=== PATIENT | female | born 1970 | race Caucasian/White ===

== ENCOUNTER → 2020-07-15 12:54 | Outpatient (CLI) | payer OTHER, SELFPAY ==
--- NOTE | 2020-07-15 12:59 | DI.US.S_ITS ---
PROCEDURE: US RENAL COMPLETE INDICATIONS: R FLANK PAIN TECHNIQUE: Real-time scanning was performed of the kidneys and bladder, with image documentation. COMPARISON: None. FINDINGS: Kidneys: Kidneys are normal in size. Right kidney measures 13.0 cm long; left kidney measures 12.1 cm long. Right renal cortical thickness is 1.1 cm; left renal cortical thickness is 1.2 cm with area of more focal thinning measuring 0.7 cm. Renal cortical echotexture is normal. No hydronephrosis or nephrolithiasis. No suspicious solid mass lesions. Bladder: Pre-void bladder volume is 207 mL. Post-void residual is 57 mL. Pre-void images demonstrate no intraluminal masses or stones. On pre-void images, bilateral ureteral jets are noted with color Doppler interrogation. (Of note, ureteral jets may not be detectable in up to 25% of cases due to insufficient differences in specific gravity between ureteral and bladder urine). There is suggestion of possible prominent trabeculation of the urinary bladder. Miscellaneous: No free pelvic fluid. IMPRESSION: 1. No sonographic evidence for hydronephrosis. 2. Possible focal cortical thinning of the left kidney, but otherwise unremarkable sonographic appearance of the left kidney. 3. Normal sonographic appearance of the right kidney. 4. Postvoid residual volume of 57 mL. 5. Suggestion of minimal prominence of urinary bladder trabeculation. This is nonspecific but may be seen in the setting of chronic urinary outlet obstruction. Dictated by: Andrew Lamb M.D. on 07/15/2020 at 14:20 Approved by: Andrew Lamb M.D. on 07/15/2020 at 14:39
== END ==
PROVIDERS: PCP Family Medicine; Referring Provider Physician Assistant; Visit Provider Physician Assistant
DX: R10.9 Unspecified abdominal pain (principal)
CPT/HCPCS: 76770

== ENCOUNTER → 2020-07-24 15:13 | Outpatient (CLI) | payer OTHER, SELFPAY ==
[2020-07-24 15:37] LABS: Hematocrit 38.3 % (36-46); Hemoglobin 13.1 g/dL (12.0-16.0); Mean Corpuscular HGB Conc 34.3 % (30-36); Mean Corpuscular Hemoglobin 30.4 PG (26-34); Mean Corpuscular Volume 88.7 fL (80-100); Platelet Count 200 X10^3/uL (150-400); Red Blood Cell Count 4.31 X10^6/uL (4.0-5.2); Red Cell Distribution Width 13.8 % (11.6-14.8); White Blood Cell Count 5.5 X10^3/uL (4.5-11.0)
[2020-07-24 15:38] LABS: Add Manual Diff / Slide Review YES
[2020-07-24 15:48] LABS: Albumin 4.1 g/dL (3.5-5.0); Albumin Globulin Ratio 1.2 (1.0-2.8); Alkaline Phosphatase 145 U/L (38-126); BUN Creatinine Ratio 13.2 (6-22); Bilirubin Total 1.6 mg/dL (0.2-1.3); Blood Urea Nitrogen 10 mg/dL (7-17); Calcium 9.5 mg/dL (8.4-10.2); Carbon Dioxide 29 mmol/L (22-32); Chloride 104 mmol/L (98-107); Estimated Glomerular Filt Rate > 60.0 mL/min (>60); Globulin 3.5 g/dL (1.7-4.1); Glucose 129 mg/dL (70-100); HEMOLYSIS < 15 (0-50); Potassium 3.7 mmol/L (3.4-5.1); Sodium 138 mmol/L (137-145); Total Protein 7.6 g/dL (6.3-8.2)
[2020-07-24 15:56] LABS: Neutrophils Absolute Manual 2035 /uL (3000-5900); Total Cells Counted 100
[2020-07-24 15:58] LABS: Aspartate Aminotransferase 1114 IU/L (14-36); RBC Morphology Normal Morphology
[2020-07-24 16:17] LABS: Alanine Aminotransferase 2708 IU/L (<35)
== END ==
PROVIDERS: PCP Family Medicine; Referring Provider Physician Assistant; Visit Provider Physician Assistant
DX: R10.9 Unspecified abdominal pain (principal)
CPT/HCPCS: 36415; 80053; 85025

== ENCOUNTER → 2020-08-06 13:00 | Outpatient (CLI) | payer OTHER, MEDICAID, SELFPAY ==
[2020-08-09 23:36] LABS: TPMT Activity 27.7 (.)
== END ==
PROVIDERS: PCP Family Medicine; Referring Provider Internal Medicine Gastroenterology; Visit Provider Internal Medicine Gastroenterology
DX: K75.4 Autoimmune hepatitis (principal)
CPT/HCPCS: 36415; 82657

== ENCOUNTER → 2021-01-12 12:22 | Outpatient (CLI) | payer OTHER, SELFPAY ==
--- NOTE | 2021-01-12 12:23 | DI.RAD.S_ITS ---
PROCEDURE: XR FOOT RT MIN 3V INDICATIONS: R ring toe injury TECHNIQUE: 3 views of the foot were acquired. COMPARISON: None. FINDINGS: Bones: No fractures or dislocations. No suspicious bony lesions. Large plantar calcaneal bone spur. Soft tissues: No tibiotalar joint effusion. Achilles tendon appears normal. IMPRESSION: No fracture. No osseous lesion. If symptoms and/or clinical suspicion for pathology persists, further assessment with repeat radiographs (7-10 days) or advanced imaging (e.g. CT, MRI or bone scan) should be considered. Dictated by: Shelly Jacome MD, PhD on 01/12/2021 at 17:21 Approved by: Shelly Jacome MD, PhD on 01/12/2021 at 17:22
== END ==
PROVIDERS: PCP Family Medicine; Referring Provider Family Medicine; Visit Provider Family Medicine
DX: S99.921A Unspecified injury of right foot, initial encounter (principal); X58.XXXA Exposure to other specified factors, initial encounter
CPT/HCPCS: 73630

== ENCOUNTER → 2021-02-24 09:42 | Outpatient (CLI) | payer OTHER, SELFPAY ==
[2021-02-24 10:32] LABS: Add Manual Diff / Slide Review NO; Basophils Absolute Auto 100 /uL (0-100); Basophils Percent Auto 0.7 % (0-2); Eosinophils Absolute Auto 100 /uL (0-450); Eosinophils Percent Auto 1.1 % (2-4); Hematocrit 38.9 % (36-46); Hemoglobin 13.7 g/dL (12.0-16.0); Lymphocytes Absolute Auto 2000 /uL (1100-4500); Lymphocytes Percent Auto 24.8 % (25-40); Mean Corpuscular HGB Conc 35.1 % (30-36); Mean Corpuscular Hemoglobin 33.6 PG (26-34); Mean Corpuscular Volume 95.6 fL (80-100); Monocytes Absolute Auto 500 /uL (0-900); Monocytes Percent Auto 6.3 % (3-14); Neutrophils Absolute Auto 5400 /uL (1500-7000); Neutrophils Percent Auto 67.1 % (50-75); Platelet Count 245 X10^3/uL (150-400); Red Blood Cell Count 4.07 X10^6/uL (4.0-5.2); Red Cell Distribution Width 13.8 % (11.6-14.8); White Blood Cell Count 8.1 X10^3/uL (4.5-11.0)
[2021-02-24 10:47] LABS: Alanine Aminotransferase 80 IU/L (<35); Albumin 4.1 g/dL (3.5-5.0); Albumin Globulin Ratio 1.5 (1.0-2.8); Alkaline Phosphatase 42 U/L (38-126); Aspartate Aminotransferase 40 IU/L (14-36); Bilirubin Total 1.3 mg/dL (0.2-1.3); Bilirubin Unconjugated 1.3 mg/dL (0.0-1.1); Globulin 2.7 g/dL (1.7-4.1); HEMOLYSIS < 15 (0-50); Total Protein 6.8 g/dL (6.3-8.2)
== END ==
PROVIDERS: PCP Family Medicine; Referring Provider Internal Medicine Gastroenterology; Visit Provider Internal Medicine Gastroenterology
DX: K75.4 Autoimmune hepatitis (principal)
CPT/HCPCS: 36415; 80076; 85025

== ENCOUNTER → 2021-03-16 09:12 | Outpatient (CLI) | payer OTHER, SELFPAY ==
[2021-03-16 10:01] LABS: Add Manual Diff / Slide Review NO; Basophils Absolute Auto 0 /uL (0-100); Basophils Percent Auto 0.4 % (0-2); Eosinophils Absolute Auto 0 /uL (0-450); Eosinophils Percent Auto 0.5 % (2-4); Hemoglobin 13.6 g/dL (12.0-16.0); Lymphocytes Absolute Auto 1000 /uL (1100-4500); Lymphocytes Percent Auto 11.6 % (25-40); Mean Corpuscular Hemoglobin 32.6 PG (26-34); Mean Corpuscular Volume 95.9 fL (80-100); Monocytes Absolute Auto 400 /uL (0-900); Monocytes Percent Auto 4.5 % (3-14); Neutrophils Absolute Auto 7300 /uL (1500-7000); Platelet Count 229 X10^3/uL (150-400); Red Blood Cell Count 4.17 X10^6/uL (4.0-5.2); Red Cell Distribution Width 13.6 % (11.6-14.8); White Blood Cell Count 8.8 X10^3/uL (4.5-11.0)
[2021-03-16 10:21] LABS: Alanine Aminotransferase 62 IU/L (<35); Albumin Globulin Ratio 1.6 (1.0-2.8); Alkaline Phosphatase 48 U/L (38-126); Aspartate Aminotransferase 39 IU/L (14-36); Bilirubin Unconjugated 1.1 mg/dL (0.0-1.1); Globulin 2.5 g/dL (1.7-4.1); HEMOLYSIS < 15 (0-50); Total Protein 6.5 g/dL (6.3-8.2)
== END ==
PROVIDERS: PCP Family Medicine; Referring Provider Internal Medicine Gastroenterology; Visit Provider Internal Medicine Gastroenterology
DX: K75.4 Autoimmune hepatitis (principal)
CPT/HCPCS: 36415; 80076; 85025

== ENCOUNTER 2021-03-25 11:36 | Emergency (ER) | payer OTHER, SELFPAY ==
[2021-03-25 11:53] VITALS: BP 133/82; PULSE 63; RESP 18; TEMP 36.7; O2SAT 98; BMI 35.5
[2021-03-25 12:11] LABS: Add Manual Diff / Slide Review NO; Basophils Absolute Auto 100 /uL (0-100); Basophils Percent Auto 0.6 % (0-2); Eosinophils Absolute Auto 100 /uL (0-450); Eosinophils Percent Auto 0.7 % (2-4); Hematocrit 40.4 % (36-46); Hemoglobin 13.8 g/dL (12.0-16.0); Lymphocytes Absolute Auto 900 /uL (1100-4500); Mean Corpuscular HGB Conc 34.2 % (30-36); Mean Corpuscular Hemoglobin 32.6 PG (26-34); Mean Corpuscular Volume 95.5 fL (80-100); Monocytes Absolute Auto 500 /uL (0-900); Monocytes Percent Auto 5.2 % (3-14); Neutrophils Absolute Auto 8000 /uL (1500-7000); Neutrophils Percent Auto 84.5 % (50-75); Platelet Count 237 X10^3/uL (150-400); Red Blood Cell Count 4.24 X10^6/uL (4.0-5.2); Red Cell Distribution Width 13.7 % (11.6-14.8); White Blood Cell Count 9.5 X10^3/uL (4.5-11.0)
[2021-03-25 12:20] LABS: PTT Partial Thromboplastin Tim 34 SECONDS (26.4-36.2)
[2021-03-25 12:21] LABS: Alanine Aminotransferase 53 IU/L (<35); Albumin 4.1 g/dL (3.5-5.0); Albumin Globulin Ratio 1.4 (1.0-2.8); Alkaline Phosphatase 56 U/L (38-126); Aspartate Aminotransferase 33 IU/L (14-36); BUN Creatinine Ratio 22.2 (6-22); Bilirubin Total 0.7 mg/dL (0.2-1.3); Blood Urea Nitrogen 18 mg/dL (7-17); Carbon Dioxide 27 mmol/L (22-32); Chloride 104 mmol/L (98-107); Estimated Glomerular Filt Rate > 60.0 mL/min (>60); Globulin 2.9 g/dL (1.7-4.1); Glucose 126 mg/dL (70-100); HEMOLYSIS < 15 (0-50); Lipase 127 U/L (23-300); Potassium 4.1 mmol/L (3.4-5.1); Sodium 137 mmol/L (137-145)
--- NOTE | 2021-03-25 14:19 | ED.GENADULT ---
HPI - General Adult General Chief complaint: Abdominal Pain Stated complaint: possible appendicitis, referred by [facility] Time Seen by Provider: 03/25/21 14:12 Source: patient Mode of arrival: Ambulatory Limitations: no limitations History of Present Illness HPI narrative: Patient is a 51-year-old female here for evaluation of lower abdominal discomfort. She states has been going on for the past several days but worsened over the past 24 hours. No nausea vomiting. No urinary symptoms. No change in bowel habits. Did start after she was eating. They have a times it has been worse than others but has had constant pain since this time. She has never had a colonoscopy before. She does have autoimmune hepatitis and is on prednisone for this. She was sent to the emergency department for further evaluation by her primary doctor's office. Related Data Home Medications Medication Instructions Recorded Confirmed azathioprine 100 mg tablet 100 mg PO DAILY 10/01/20 12/08/20 budesonide 3 mg 3 mg PO DAILY 03/25/21 capsule,delayed,extended release prednisone 5 mg tablet 7.5 mg PO DAILY tab 03/25/21 Previous Rx's Medication Instructions Recorded levothyroxine 100 mcg tablet See Rx Instructions PO DAILY #90 02/05/21 tab Allergies Allergy/AdvReac Type Severity Reaction Status Date / Time fluconazole [From Diflucan] Allergy Verified 12/08/20 09:45 ibuprofen Allergy Verified 12/08/20 09:45 Review of Systems Constitutional Constitutional: Denies fatigue, Denies fever(s) and Denies headache(s) Eyes Eyes: Denies change in vision ENT Ears, Nose, Mouth, and Throat: Denies headache(s) and Denies sore throat Cardiovascular Cardiovascular: Denies chest pain and Denies dyspnea Respiratory Respiratory: Denies dyspnea Gastrointestinal Gastrointestinal: Reports abdominal pain, Denies change in bowel habits, Denies nausea and Denies vomiting Genitourinary Genitourinary: Denies dysuria Genitourinary: Denies dysuria and Denies vaginal discharge Musculoskeletal Musculoskeletal: Denies arthralgias and Denies myalgias Integumentary/Breasts Skin/Breast: Denies rash Neurologic Neurologic: Denies behavioral changes and Denies headache(s) Psychiatric Psychiatric: Denies behavioral changes Endocrine Endocrine: Denies fatigue Hematologic/Lymphatic On Anticoagulants: No Allergic/Immunologic Allergic/Immunologic: Denies urticaria Patient History Medical History Anemia Autoimmune hepatitis (~2019) Drug-induced hepatitis (~09/2019) Hypothyroidism (~1996) Kidney disease Liver disease Pyelonephritis (~1970) Recurrent UTI Sliding hiatal hernia (~2010) Surgical History (Updated 10/02/20 @ 20:20 by Rizwana Bateman) Anesthesia History of hand surgery (~2016) History of partial hysterectomy (~2010) History of History of tubal ligation (~1996) Pilonidal cyst (~1990) S/P ureteral reimplantation Ulnar nerve damage (~2006) [place] teeth removed (~2006) Social History Smoking Status: Former smoker Smoking Status: Former smoker alcohol intake frequency: 0-2 drinks per day Substance Use Type: does not use Exam Initial Vital Signs Initial Vital Signs: Vital Signs Temperature 98.0 F 03/25/21 11:53 Pulse Rate 63 03/25/21 11:53 Respiratory Rate 18 03/25/21 11:53 Blood Pressure 133/82 03/25/21 11:53 Pulse Oximetry 98 03/25/21 11:53 Const General: cooperative, comfortable and well developed Limitations: mental status not altered HENMT Head: normal to inspection and normocephalic Eyes General: appearance normal, both eyes and all related structures Chest Chest: No tenderness Resp Effort & Inspection: normal respiratory effort Auscultation: clear to auscultation bilaterally Cardio Rate: regular rate Rhythm: regular rhythm GI Inspection: non-distended Palpation: soft, No firm and tender (Midline to lower abdomen without rebound or guarding) Skin Lesions: no lesions Rashes: no rashes Neuro General: patient alert, patient awake and patient oriented x3 Cognition: normal cognition Speech: speech normal Extrem General: normal to inspection and capillary refill normal Psych Appearance: grossly normal and well kempt Course Orders Ordered: ED Orders 03/25/21 12:05 Complete Blood Count AUTO DIFF Stat Comprehensive Metabolic Panel Stat Lipase Stat Partial Thromboplastin Time Stat Prothrombin Time INR Stat 03/25/21 14:20 CT abdomen pelvis w con Stat 03/25/21 14:48 Urine Microscopic Stat Discontinued Medications Sodium Chloride (Normal Saline 0.9%) 1,000 mls @ 1,000 mls/hr IV BOLUS ONE Stop: 03/25/21 15:19 Last Admin: 03/25/21 14:35 Dose: 1,000 mls/hr Documented by: MAURICIO Vital Signs Vital signs: Vital Signs - 8 hr 03/25/21 11:53 Temperature 98.0 F Pulse Rate 63 Respiratory Rate 18 Blood Pressure 133/82 Pulse Oximetry 98 Medical Decision Making Lab Data Lab results reviewed: Yes I reviewed the patient's lab results. Result diagrams: 03/25/21 12:05 03/25/21 12:05 Labs: Lab Results 03/25/21 03/25/21 03/25/21 Range/Units 12:05 12:05 12:05 WBC 9.5 (4.5-11.0) X10^3/uL RBC 4.24 (4.0-5.2) X10^6/uL Hgb 13.8 (12.0-16.0) g/dL Hct 40.4 (36-46) % MCV 95.5 (80-100) fL MCH 32.6 (26-34) PG MCHC 34.2 (30-36) % RDW 13.7 (11.6-14.8) % Plt Count 237 (150-400) X10^3/uL Neut % (Auto) 84.5 H (50-75) % Lymph % (Auto) 9.0 L (25-40) % [place] % (Auto) 5.2 (3-14) % Eos % (Auto) 0.7 L (2-4) % Baso % (Auto) 0.6 (0-2) % Neut # (Auto) 8000 H (1341-7452) /uL Lymph # (Auto) 900 L (7246-3962) /uL [place] # (Auto) 500 (0-900) /uL Eos # (Auto) 100 (0-450) /uL Baso # (Auto) 100 (0-100) /uL PT 11.0 (10.1-12.7) SECONDS INR 1.0 (0.9-1.3) APTT 34 (26.4-36.2) SECONDS Sodium 137 (137-145) mmol/L Potassium 4.1 (3.4-5.1) mmol/L Chloride 104 (98-107) mmol/L Carbon Dioxide 27 (22-32) mmol/L BUN 18 H (7-17) mg/dL Creatinine 0.81 (0.52-1.04) mg/dL Estimated GFR > 60.0 (>60) mL/min BUN/Creatinine Ratio 22.2 H (6-22) Glucose 126 H (70-100) mg/dL Calcium 10.0 (8.4-10.2) mg/dL Total Bilirubin 0.7 (0.2-1.3) mg/dL AST 33 (14-36) IU/L ALT 53 H (<35) IU/L Alkaline Phosphatase 56 (38-126) U/L Total Protein 7.0 (6.3-8.2) g/dL Albumin 4.1 (3.5-5.0) g/dL Globulin 2.9 (1.7-4.1) g/dL Albumin/Globulin Ratio 1.4 (1.0-2.8) Lipase 127 (23-300) U/L Urine Dip Bedside Urine Glucose Negative Bedside Urine Bilirubin - Negative Bedside Urine Ketone - Negative Urine Specific [place] 1.025 Bedside Urine Occult Blood +++ Bedside Urine pH 6.5 Bedside Urine Protein - Negative Bedside Urine Urobilinogen - Negative Bedside Urine Nitrite - Negative Bedside Urine Leukocytes - Negative Esterase Point of care testing: Urine Dip Bedside Urine Glucose Negative Bedside Urine Bilirubin - Negative Bedside Urine Ketone - Negative Urine Specific [place] 1.025 Bedside Urine Occult Blood +++ Bedside Urine pH 6.5 Bedside Urine Protein - Negative Bedside Urine Urobilinogen - Negative Bedside Urine Nitrite - Negative Bedside Urine Leukocytes - Negative Esterase Imaging Data CT scan - abdomen/pelvis: Radiologist's Impression: [address] [id number] Scan ReportSigned Patient: Ember Medellin#: [id number]: 1970Acct:[id number]/Sex: 51 / FDate of Service: 03/25/21Loc: EDAccession Number: [id number] Procedure: CT abdomen pelvis w con Ordering Provider: Graham Nelson D.O. PROCEDURE: CT ABDOMEN PELVIS W CON INDICATIONS: Suprapubic abdominal pain TECHNIQUE: After the administration of intravenous contrast, 5 mm thick sections acquired from the diaphragm to the symphysis. 5 mm coronal and sagittal reformats were acquired. For radiation dose reduction, the following was used: automated exposure control, adjustment of mA and/or kV according to patient size. COMPARISON: [facility], US, US ABDOMEN LIMITED, 08/12/2020, 7:13. FINDINGS: Image quality: Excellent. ABDOMEN: Lung bases: Lung bases are clear. Heart size is normal. Solid organs: Liver is normal in size and enhancement. Gallbladder is normal. Biliary system is non dilated. Pancreas enhances normally. Spleen is normal in size and enhancement. No adrenal nodules. Kidneys demonstrate normal size and enhancement, without hydronephrosis. 1.6 centimeter left renal cyst. Peritoneum and bowel: Bowel loops demonstrate normal wall thickness and caliber. No free air. Trace free fluid noted in the cul-de-sac of the pelvis. The appendix is normal. Nodes and vessels: No retroperitoneal or mesenteric adenopathy by size criteria. Aorta and inferior vena cava are normal in size. Miscellaneous: Small fat containing left Spigelian hernia noted. There is minimal stranding within the herniated fat. PELVIS: Genitourinary: Bladder wall thickness is normal. Uterus is absent. Miscellaneous: No inguinal hernias or adenopathy. Bones: No suspicious bony lesions. No vertebral body compression fractures. Spine degenerative disc disease. IMPRESSION: 1. Small fat containing left Spigelian hernia. There is minimal inflammatory stranding involving the herniated fat. 2. No dilated loops of bowel. 3. Trace free fluid in the cul-de-sac of the pelvis. 4. The appendix is normal. Dictated by: Shelly Jacome MD, PhD on 03/25/2021 at 14:46 Approved by: Shelly Jacome MD, PhD on 03/25/2021 at 14:55 [facility] Narrative Medical decision making narrative: Patient's labs are unremarkable. Her urine has blood but no signs of infection. Abdomen x-ray shows that containing hernia with some stranding but no bowel. Discussed the case with Dr. Valle with General surgery who stated that this should be treated with anti-inflammatories and she can follow-up as an outpatient. There is no other findings on the CT scan that would explain her symptoms. I did discuss this with her. There is no indication for antibiotics. No indication for emergent surgical consultation. She was given follow-up information with General surgery. She expressed understanding and agreement. Discharge Plan Departure Patient Disposition: Home Clinical Impression: Spigelian hernia, Abdominal pain, Hematuria Instructions: DI for Abdominal Pain-Adult Activity Restrictions/Additional Instructions: Recommend you continue all of your medications as directed. Contact your primary provider for follow-up. If your symptoms do not improve contact the general surgery clinic for a follow-up. Return to the emergency department for any new or worsening symptoms Prescriptions: No Action azathioprine 100 mg tablet 100 mg PO DAILY RF: 0 levothyroxine 100 mcg tablet See Rx Instructions PO DAILY Qty: 90 RF: 0 prednisone 5 mg tablet 7.5 mg PO DAILY RF: 0 budesonide 3 mg capsule,delayed,extend.release 3 mg PO DAILY RF: 0 Referrals: Rommel Valle MD [Physician] - Gogo Pedro MD [Primary Care Provider] -
[2021-03-25] MEDS: SODIUM CHLORIDE 0.9% 1,000 ML 1000 ML IV (14:35)
[2021-03-25 14:40] VITALS: PULSE 61; O2SAT 98
[2021-03-25 15:00] VITALS: BP 123/69; PULSE 64; O2SAT 100
[2021-03-25 15:14] LABS: Bacteria Urine None Seen
[2021-03-25 15:33] LABS: Amorphous Sediment Urine 2+; Culture Indicated Urine Cult Not Indicated; RBC Urine 10-30/HPF (0-5/HPF); Squamous Epithelial Cell Urine 0-1 /HPF (0-5/HPF); WBC Urine 0-1/HPF (0-5/HPF)
--- NOTE | 2021-04-14 11:37 | PC.NURSE ---
Late Entry - per RN IV fluids DC'd prior to discharge at 1445
--- NOTE | 2021-04-30 07:38 | PC.NURSE ---
Addendum entered by Valentina Meléndez R.N. 04/30/21 07:40: normal saline infused at 1445. Original Note: late entry. Normal Saline administered at 1435 at 1000 ml. hour and infused at 1535 . pt received 1000 cc. thank you
== END 2021-03-25 15:31 | disposition home or self-care (01) ==
PROVIDERS: Emergency Medicine; Emergency Provider Emergency Medicine; PCP Family Medicine
DX: K43.9 Ventral hernia without obstruction or gangrene (principal); R10.30 Lower abdominal pain, unspecified; R31.9 Hematuria, unspecified
CPT/HCPCS: 36415; 74177; 80053; 81003; 81015; 83690; 85025; 85610; 85730; 99284

== ENCOUNTER → 2021-03-31 12:54 | Outpatient (CLI) | payer OTHER, SELFPAY ==
[2021-03-31 13:15] LABS: Add Manual Diff / Slide Review NO; Basophils Absolute Auto 100 /uL (0-100); Basophils Percent Auto 0.9 % (0-2); Eosinophils Absolute Auto 0 /uL (0-450); Eosinophils Percent Auto 0.3 % (2-4); Hematocrit 42.2 % (36-46); Hemoglobin 14.4 g/dL (12.0-16.0); Lymphocytes Absolute Auto 1000 /uL (1100-4500); Lymphocytes Percent Auto 11.6 % (25-40); Mean Corpuscular HGB Conc 34.1 % (30-36); Mean Corpuscular Hemoglobin 32.5 PG (26-34); Mean Corpuscular Volume 95.5 fL (80-100); Monocytes Absolute Auto 400 /uL (0-900); Monocytes Percent Auto 4.7 % (3-14); Neutrophils Absolute Auto 6900 /uL (1500-7000); Neutrophils Percent Auto 82.5 % (50-75); Platelet Count 264 X10^3/uL (150-400); Red Blood Cell Count 4.42 X10^6/uL (4.0-5.2); Red Cell Distribution Width 13.7 % (11.6-14.8); White Blood Cell Count 8.3 X10^3/uL (4.5-11.0)
[2021-03-31 13:39] LABS: Alanine Aminotransferase 49 IU/L (<35); Albumin 4.1 g/dL (3.5-5.0); Albumin Globulin Ratio 1.5 (1.0-2.8); Alkaline Phosphatase 57 U/L (38-126); Aspartate Aminotransferase 34 IU/L (14-36); Bilirubin Total 1.1 mg/dL (0.2-1.3); Globulin 2.8 g/dL (1.7-4.1); HEMOLYSIS < 15 (0-50); Total Protein 6.9 g/dL (6.3-8.2)
== END ==
PROVIDERS: PCP Family Medicine; Referring Provider Internal Medicine Gastroenterology; Visit Provider Internal Medicine Gastroenterology
DX: K75.4 Autoimmune hepatitis (principal)
CPT/HCPCS: 36415; 80076; 85025

== ENCOUNTER → 2021-04-14 13:21 | Outpatient (CLI) | payer OTHER, SELFPAY ==
[2021-04-14 13:59] LABS: Add Manual Diff / Slide Review NO; Basophils Absolute Auto 100 /uL (0-100); Basophils Percent Auto 0.6 % (0-2); Eosinophils Absolute Auto 0 /uL (0-450); Eosinophils Percent Auto 0.3 % (2-4); Hemoglobin 14.1 g/dL (12.0-16.0); Lymphocytes Absolute Auto 1000 /uL (1100-4500); Mean Corpuscular HGB Conc 33.5 % (30-36); Mean Corpuscular Volume 95.3 fL (80-100); Monocytes Absolute Auto 300 /uL (0-900); Monocytes Percent Auto 3.6 % (3-14); Neutrophils Absolute Auto 8200 /uL (1500-7000); Neutrophils Percent Auto 85.5 % (50-75); Platelet Count 249 X10^3/uL (150-400); Red Blood Cell Count 4.41 X10^6/uL (4.0-5.2); Red Cell Distribution Width 13.7 % (11.6-14.8); White Blood Cell Count 9.6 X10^3/uL (4.5-11.0)
[2021-04-14 15:22] LABS: Alanine Aminotransferase 46 IU/L (<35); Albumin 4.2 g/dL (3.5-5.0); Albumin Globulin Ratio 1.4 (1.0-2.8); Alkaline Phosphatase 56 U/L (38-126); Aspartate Aminotransferase 41 IU/L (14-36); Bilirubin Total 0.9 mg/dL (0.2-1.3); Globulin 3.1 g/dL (1.7-4.1); HEMOLYSIS < 15 (0-50); Total Protein 7.3 g/dL (6.3-8.2)
== END ==
PROVIDERS: PCP Family Medicine; Referring Provider Internal Medicine Gastroenterology; Visit Provider Internal Medicine Gastroenterology
DX: K75.4 Autoimmune hepatitis (principal)
CPT/HCPCS: 36415; 80076; 85025

== ENCOUNTER 2021-05-01 23:06 | Emergency (ER) | payer OTHER, SELFPAY ==
--- NOTE | 2021-05-01 23:16 | ED_ITS ---
HPI - General Adult General Chief complaint: Urogenital-Female Stated complaint: UTI Time Seen by Provider: 05/01/21 23:16 History of Present Illness HPI narrative: 51-year-old woman with a history of autoimmune hepatitis currently on prednisone budesonide and azathioprine presents with 24 hours of increasing urinary tract symptoms. She noted increasing frequency yesterday in today was beginning to notice slight sensation of burning and continued frequency. She has had multiple UTIs in the past and wanted to make sure that with the moderate amount of immunosuppressive medications she is on that she did not end up with complications from a simple bladder infection. She describes no fevers, cough, chills, abdominal pain, vomiting, diarrhea, flank pain, headache or acute neurologic changes Related Data Home Medications Medication Instructions Recorded Confirmed azathioprine 100 mg tablet 100 mg PO DAILY 10/01/20 12/08/20 budesonide 3 mg 3 mg PO DAILY 03/25/21 capsule,delayed,extended release prednisone 5 mg tablet 7.5 mg PO DAILY tab 03/25/21 Previous Rx's Medication Instructions Recorded levothyroxine 100 mcg tablet See Rx Instructions PO DAILY #90 02/05/21 tab sulfamethoxazole-trimethoprim 1 tab PO BID #10 tab 05/01/21 [Bactrim DS] Allergies Allergy/AdvReac Type Severity Reaction Status Date / Time fluconazole [From Diflucan] Allergy Verified 12/08/20 09:45 ibuprofen Allergy Verified 12/08/20 09:45 Review of Systems Review of Systems Narrative: Remainder of complete review of systems is otherwise unremarkable except for that included in the HPI. Patient History Medical History Anemia Autoimmune hepatitis (~2019) Drug-induced hepatitis (~09/2019) Hypothyroidism (~1996) Kidney disease Liver disease Pyelonephritis (~1970) Recurrent UTI Sliding hiatal hernia (~2010) Surgical History Anesthesia History of hand surgery (~2016) History of partial hysterectomy (~2010) History of History of tubal ligation (~1996) Pilonidal cyst (~1990) S/P ureteral reimplantation Ulnar nerve damage (~2006) [place] teeth removed (~2006) Social History Smoking Status: Former smoker Smoking Status: Former smoker alcohol intake frequency: 0-2 drinks per day Substance Use Type: does not use Exam Narrative Exam Narrative: General: Alert appropriate in no acute distress Respiratory: Able to speak in full sentences, no obvious respiratory distress Abdomen: No abdominal pain, no suprapubic and no flank pain Skin: No obvious rashes, warm and dry Neurologic: Grossly intact no obvious asymmetries or abnormalities Psych: appropriate insight and affect, cooperative Initial Vital Signs Initial Vital Signs: Vital Signs Temperature 97.6 F 05/01/21 23:18 Pulse Rate 64 05/01/21 23:18 Respiratory Rate 14 05/01/21 23:18 Blood Pressure 140/96 H 05/01/21 23:18 Pulse Oximetry 97 05/01/21 23:18 Course Orders Ordered: ED Orders 05/01/21 23:28 Urine Culture Stat Urine Microscopic Stat Discontinued Medications Trimethoprim/Sulfamethoxazole (Trimeth/Sulfa 160/800 (Ds) Tablet) 1 tab PO NOW ONE Stop: 05/01/21 23:55 Last Admin: 05/01/21 23:59 Dose: 1 tab Documented by: ALEKSANDER Vital Signs Vital signs: Vital Signs - 8 hr 05/01/21 23:18 Temperature 97.6 F Pulse Rate 64 Respiratory Rate 14 Blood Pressure 140/96 H Pulse Oximetry 97 Medical Decision Making Medical Records Medical records reviewed: Yes I reviewed the patient's medical records. Lab Data Lab results reviewed: Yes I reviewed the patient's lab results. Labs: Lab Results 05/01/21 Range/Units 23:28 Urine RBC 10-30/hpf H (0-5/HPF) Urine WBC 1-5/hpf (0-5/HPF) Urine Bacteria Many (>30) H (None) Ur Culture Indicated? Specimen cultured Urine Dip Bedside Urine Glucose Negative Bedside Urine Bilirubin - Negative Bedside Urine Ketone - Negative Urine Specific [place] 1.015 Bedside Urine Occult Blood +++ Bedside Urine pH 7.5 Bedside Urine Protein - Negative Bedside Urine Urobilinogen - Negative Bedside Urine Nitrite + Positive Bedside Urine Leukocytes + 70 Esterase Point of care testing: Urine Dip Bedside Urine Glucose Negative Bedside Urine Bilirubin - Negative Bedside Urine Ketone - Negative Urine Specific [place] 1.015 Bedside Urine Occult Blood +++ Bedside Urine pH 7.5 Bedside Urine Protein - Negative Bedside Urine Urobilinogen - Negative Bedside Urine Nitrite + Positive Bedside Urine Leukocytes + 70 Esterase MDM Narrative Medical decision making narrative: 51-year-old woman with clinical signs and symptoms of UTI with positive urinalysis. She says she has had success with both Septra and Cipro in the past. Given a prescription for Septra b.i.d. for the next 5 days. There is no evidence of sepsis, vaginal infection, pyelonephri tis or intra-abdominal infection. She is safe for home discharge Discharge Plan Departure Patient Disposition: Home Clinical Impression: Recurrent UTI Instructions: DI for Urinary Tract Infection (UTI) Activity Restrictions/Additional Instructions: Thank you for coming in today It definitely looks like you have a bladder infection developing. Your urine has been cultured. In the meantime, we have started you on Septra/Bactrim. First dose was given in the ER and I have given you 10 additional pills to complete a 5 day course If you have worsening symptoms, vomiting, flank pain, fevers or abdominal pain please feel free to return to the emergency department for further evaluation. I am glad that you came in as early as you did, I think that was very appropriate. Prescriptions: New sulfamethoxazole-trimethoprim [Bactrim DS] 800-160 mg tablet 1 tab PO BID Qty: 10 RF: 0 No Action azathioprine 100 mg tablet 100 mg PO DAILY RF: 0 levothyroxine 100 mcg tablet See Rx Instructions PO DAILY Qty: 90 RF: 0 prednisone 5 mg tablet 7.5 mg PO DAILY RF: 0 budesonide 3 mg capsule,delayed,extend.release 3 mg PO DAILY RF: 0 Referrals: Gogo Pedro MD [Primary Care Provider] -
[2021-05-01 23:18] VITALS: BP 140/96; PULSE 64; RESP 14; TEMP 36.4; O2SAT 97; BMI 35.5
[2021-05-01 23:48] LABS: Bacteria Urine Many (>30); RBC Urine 10-30/HPF (0-5/HPF); WBC Urine 1-5/HPF (0-5/HPF)
[2021-05-01 23:49] LABS: Culture Indicated Urine Specimen Cultured
[2021-05-01] MEDS: TRIMETH/SULFA 160/800 (DS) TABLET 1 TAB PO (23:59)
== END 2021-05-02 00:04 | disposition home or self-care (01) ==
PROVIDERS: Emergency Provider Emergency Medicine; PCP Family Medicine
DX: N39.0 Urinary tract infection, site not specified (principal)
CPT/HCPCS: 81003; 81015; 87077; 87086; 87186; 99283

== ENCOUNTER → 2021-05-05 11:30 | Outpatient (CLI) | payer OTHER, SELFPAY ==
[2021-05-05 12:07] LABS: Add Manual Diff / Slide Review NO; Basophils Absolute Auto 0 /uL (0-100); Basophils Percent Auto 0.4 % (0-2); Eosinophils Absolute Auto 0 /uL (0-450); Eosinophils Percent Auto 0.5 % (2-4); Hematocrit 39.7 % (36-46); Hemoglobin 13.5 g/dL (12.0-16.0); Lymphocytes Absolute Auto 900 /uL (1100-4500); Lymphocytes Percent Auto 12.6 % (25-40); Mean Corpuscular HGB Conc 33.9 % (30-36); Mean Corpuscular Hemoglobin 31.9 PG (26-34); Mean Corpuscular Volume 94.1 fL (80-100); Monocytes Absolute Auto 400 /uL (0-900); Monocytes Percent Auto 5.6 % (3-14); Neutrophils Absolute Auto 5800 /uL (1500-7000); Neutrophils Percent Auto 80.9 % (50-75); Platelet Count 255 X10^3/uL (150-400); Red Blood Cell Count 4.22 X10^6/uL (4.0-5.2); Red Cell Distribution Width 13.7 % (11.6-14.8); White Blood Cell Count 7.2 X10^3/uL (4.5-11.0)
[2021-05-05 12:18] LABS: Alanine Aminotransferase 36 IU/L (<35); Albumin 4.1 g/dL (3.5-5.0); Albumin Globulin Ratio 1.4 (1.0-2.8); Alkaline Phosphatase 61 U/L (38-126); Aspartate Aminotransferase 31 IU/L (14-36); Bilirubin Total 0.9 mg/dL (0.2-1.3); Bilirubin Unconjugated 0.7 mg/dL (0.0-1.1); HEMOLYSIS < 15 (0-50); Total Protein 7.1 g/dL (6.3-8.2)
[2021-05-05 12:49] LABS: Thyroid Stimulating Hormone 0.293 uIU/mL (0.47-4.68)
== END ==
PROVIDERS: PCP Family Medicine; Referring Provider Internal Medicine Gastroenterology; Visit Provider Internal Medicine Gastroenterology
DX: K75.4 Autoimmune hepatitis (principal); E03.9 Hypothyroidism, unspecified
CPT/HCPCS: 36415; 80076; 84443; 85025

== ENCOUNTER → 2021-06-03 15:41 | Outpatient (CLI) | payer OTHER, SELFPAY ==
[2021-06-03 17:39] LABS: Add Manual Diff / Slide Review NO; Basophils Absolute Auto 0 /uL (0-100); Basophils Percent Auto 0.4 % (0-2); Eosinophils Absolute Auto 0 /uL (0-450); Eosinophils Percent Auto 0.3 % (2-4); Hematocrit 39.9 % (36-46); Hemoglobin 13.7 g/dL (12.0-16.0); Lymphocytes Absolute Auto 1000 /uL (1100-4500); Lymphocytes Percent Auto 12.8 % (25-40); Mean Corpuscular HGB Conc 34.3 % (30-36); Mean Corpuscular Hemoglobin 32.5 PG (26-34); Mean Corpuscular Volume 94.8 fL (80-100); Monocytes Absolute Auto 400 /uL (0-900); Monocytes Percent Auto 5.3 % (3-14); Neutrophils Absolute Auto 6500 /uL (1500-7000); Neutrophils Percent Auto 81.2 % (50-75); Platelet Count 262 X10^3/uL (150-400); Red Blood Cell Count 4.21 X10^6/uL (4.0-5.2); Red Cell Distribution Width 13.6 % (11.6-14.8)
[2021-06-03 18:28] LABS: Alanine Aminotransferase 45 IU/L (<35); Albumin 4.2 g/dL (3.5-5.0); Albumin Globulin Ratio 1.4 (1.0-2.8); Alkaline Phosphatase 59 U/L (38-126); Aspartate Aminotransferase 39 IU/L (14-36); Bilirubin Total 1.2 mg/dL (0.2-1.3); Bilirubin Unconjugated 1.1 mg/dL (0.0-1.1); HEMOLYSIS < 15 (0-50); Total Protein 7.2 g/dL (6.3-8.2)
[2021-06-03 18:55] LABS: Thyroid Stimulating Hormone 0.634 uIU/mL (0.47-4.68)
== END ==
PROVIDERS: PCP Family Medicine; Referring Provider Internal Medicine Gastroenterology; Visit Provider Internal Medicine Gastroenterology
DX: K75.4 Autoimmune hepatitis (principal); E03.9 Hypothyroidism, unspecified
CPT/HCPCS: 36415; 80076; 84443; 85025

== ENCOUNTER → 2021-06-09 11:54 | Outpatient (CLI) | payer OTHER, SELFPAY | PROVIDERS: PCP Family Medicine; Referring Provider Family Medicine; Visit Provider Family Medicine | DX: M85.88 Other specified disorders of bone density and structure, other site (principal); E07.9 Disorder of thyroid, unspecified; Z79.52 Long term (current) use of systemic steroids; Z87.891 Personal history of nicotine dependence | CPT/HCPCS: 77080 ==

== ENCOUNTER → 2021-06-22 09:29 | Outpatient (CLI) | payer OTHER, SELFPAY ==
[2021-06-22 10:07] LABS: Add Manual Diff / Slide Review NO; Basophils Absolute Auto 0 /uL (0-100); Basophils Percent Auto 0.6 % (0-2); Eosinophils Absolute Auto 100 /uL (0-450); Eosinophils Percent Auto 1.5 % (2-4); Hematocrit 39.2 % (36-46); Hemoglobin 13.1 g/dL (12.0-16.0); Lymphocytes Absolute Auto 1600 /uL (1100-4500); Lymphocytes Percent Auto 19.3 % (25-40); Mean Corpuscular HGB Conc 33.5 % (30-36); Mean Corpuscular Hemoglobin 31.6 PG (26-34); Mean Corpuscular Volume 94.5 fL (80-100); Monocytes Absolute Auto 500 /uL (0-900); Monocytes Percent Auto 6.3 % (3-14); Neutrophils Absolute Auto 5900 /uL (1500-7000); Neutrophils Percent Auto 72.3 % (50-75); Platelet Count 241 X10^3/uL (150-400); Red Blood Cell Count 4.15 X10^6/uL (4.0-5.2); Red Cell Distribution Width 13.5 % (11.6-14.8); White Blood Cell Count 8.1 X10^3/uL (4.5-11.0)
[2021-06-22 10:31] LABS: Alanine Aminotransferase 33 IU/L (<35); Albumin 3.7 g/dL (3.5-5.0); Albumin Globulin Ratio 1.4 (1.0-2.8); Alkaline Phosphatase 60 U/L (38-126); Aspartate Aminotransferase 29 IU/L (14-36); Bilirubin Total 0.9 mg/dL (0.2-1.3); Bilirubin Unconjugated 0.8 mg/dL (0.0-1.1); Globulin 2.6 g/dL (1.7-4.1); HEMOLYSIS < 15 (0-50); Total Protein 6.3 g/dL (6.3-8.2)
== END ==
PROVIDERS: PCP Family Medicine; Referring Provider Internal Medicine Gastroenterology; Visit Provider Internal Medicine Gastroenterology
DX: K75.4 Autoimmune hepatitis (principal)
CPT/HCPCS: 36415; 80076; 85025

== ENCOUNTER → 2021-07-09 11:21 | Outpatient (CLI) | payer OTHER, SELFPAY ==
[2021-07-09 12:02] LABS: Add Manual Diff / Slide Review NO; Basophils Absolute Auto 100 /uL (0-100); Basophils Percent Auto 1.3 % (0-2); Eosinophils Absolute Auto 100 /uL (0-450); Eosinophils Percent Auto 1.6 % (2-4); Hematocrit 38.3 % (36-46); Hemoglobin 12.7 g/dL (12.0-16.0); Lymphocytes Absolute Auto 1600 /uL (1100-4500); Lymphocytes Percent Auto 23.2 % (25-40); Mean Corpuscular HGB Conc 33.2 % (30-36); Mean Corpuscular Hemoglobin 31.2 PG (26-34); Monocytes Absolute Auto 500 /uL (0-900); Monocytes Percent Auto 7.9 % (3-14); Neutrophils Absolute Auto 4400 /uL (1500-7000); Platelet Count 242 X10^3/uL (150-400); Red Blood Cell Count 4.07 X10^6/uL (4.0-5.2); Red Cell Distribution Width 13.5 % (11.6-14.8); White Blood Cell Count 6.7 X10^3/uL (4.5-11.0)
[2021-07-09 12:20] LABS: Alanine Aminotransferase 33 IU/L (<35); Albumin 3.8 g/dL (3.5-5.0); Albumin Globulin Ratio 1.2 (1.0-2.8); Alkaline Phosphatase 55 U/L (38-126); Aspartate Aminotransferase 36 IU/L (14-36); Bilirubin Unconjugated 0.9 mg/dL (0.0-1.1); Globulin 3.1 g/dL (1.7-4.1); HEMOLYSIS < 15 (0-50); Total Protein 6.9 g/dL (6.3-8.2)
== END ==
PROVIDERS: PCP Family Medicine; Referring Provider Internal Medicine Gastroenterology; Visit Provider Internal Medicine Gastroenterology
DX: K75.4 Autoimmune hepatitis (principal)
CPT/HCPCS: 36415; 80076; 85025

== ENCOUNTER → 2021-08-10 14:11 | Outpatient (CLI) | payer OTHER, SELFPAY ==
[2021-08-10 14:52] LABS: Add Manual Diff / Slide Review NO; Basophils Absolute Auto 100 /uL (0-100); Basophils Percent Auto 0.7 % (0-2); Eosinophils Absolute Auto 100 /uL (0-450); Eosinophils Percent Auto 1.1 % (2-4); Hematocrit 39.4 % (36-46); Lymphocytes Absolute Auto 1300 /uL (1100-4500); Lymphocytes Percent Auto 16.7 % (25-40); Mean Corpuscular HGB Conc 32.9 % (30-36); Mean Corpuscular Volume 94.2 fL (80-100); Monocytes Absolute Auto 600 /uL (0-900); Monocytes Percent Auto 7.5 % (3-14); Neutrophils Absolute Auto 5700 /uL (1500-7000); Platelet Count 267 X10^3/uL (150-400); Red Blood Cell Count 4.18 X10^6/uL (4.0-5.2); Red Cell Distribution Width 13.1 % (11.6-14.8); White Blood Cell Count 7.7 X10^3/uL (4.5-11.0)
[2021-08-10 14:56] LABS: Alanine Aminotransferase 30 IU/L (<35); Albumin 4.3 g/dL (3.5-5.0); Albumin Globulin Ratio 1.4 (1.0-2.8); Alkaline Phosphatase 60 U/L (38-126); Aspartate Aminotransferase 28 IU/L (14-36); Bilirubin Total 0.9 mg/dL (0.2-1.3); Bilirubin Unconjugated 0.7 mg/dL (0.0-1.1); HEMOLYSIS < 15 (0-50); Total Protein 7.3 g/dL (6.3-8.2)
== END ==
PROVIDERS: PCP Family Medicine; Referring Provider Internal Medicine Gastroenterology; Visit Provider Internal Medicine Gastroenterology
DX: K75.4 Autoimmune hepatitis (principal)
CPT/HCPCS: 36415; 80076; 85025

== ENCOUNTER → 2021-08-25 10:54 | Outpatient (CLI) | payer OTHER, SELFPAY ==
--- NOTE | 2021-08-25 11:02 | DIET.PN1 ---
Dietary Progress Note Assessment: 51y [address] attending [address] visit for help managing diet for multiple health conditions including recent weight gain associated c prednisone use. Has sliding hiatal hernia, recent steroid caused weight gain making GERD (tomato sauce, , has an autoimmune hepatitis (stage 1). Just got off prednisone, had weight gain and lots of hunger and cravings. Pt has osteopenia not able to take calcium supplements. Easily runs out of energy, looking for easy meal prep ideas. When on clean eating diet: scrambled eggs c oatmeal c raisins chicken and turkey burger with blueberries and spinach some nuts smoothies-beets, spinach, broccoli, banana, yogurt, beet juice, carrot juice is using Nutpods as creamer in coffee not big milk drinker, likes cheese, some yogurt intake previously was taking 100% cranberry juice in water doesn't mind eating same foods daily. Lives c (pt grocery shops, does meals, packs lunch) likes salad but not spinach Dislikes: kale unless a little bit Ht: 5'6 Wt: 230# BMI: 37.3 Nutrition Diagnosis: abnormal weight gain r/t high calorie intake aeb pt perscribed high dose prednisone which increased pts appetite and decreased satiety, BMI 37.3 Interventions: 1. Educated pt on diet to support liver health, GERD, osteopenia, and weight loss using various handouts and food models. 2. Collaborated c pt creating food plan taking all health conditions into account to promote weight loss and adequate calcium intake. EER: 1500kcals, 80g PRO, 1200mg calcium Monitoring/Evaluations: f/u in 1 month to assess progress and problem solve barriers Electronically Signed by: Katheryn Jeffrey 08/25/21 11:02 Clinical Dietitian [id number] [place] [address]
[2021-08-25 11:53] VITALS: BMI 37.1
== END ==
PROVIDERS: PCP Family Medicine; Referring Provider Family Medicine; Visit Provider Family Medicine
DX: R63.5 Abnormal weight gain (principal); K44.9 Diaphragmatic hernia without obstruction or gangrene; K21.9 Gastro-esophageal reflux disease without esophagitis; Z79.52 Long term (current) use of systemic steroids; Z71.3 Dietary counseling and surveillance; E66.9 Obesity, unspecified; Z68.37 Body mass index [BMI] 37.0-37.9, adult
CPT/HCPCS: 97802

== ENCOUNTER → 2021-09-10 14:50 | Outpatient (CLI) | payer OTHER, SELFPAY ==
[2021-09-10 16:16] LABS: Add Manual Diff / Slide Review NO; Basophils Absolute Auto 0 /uL (0-100); Basophils Percent Auto 0.7 % (0-2); Eosinophils Absolute Auto 100 /uL (0-450); Eosinophils Percent Auto 0.8 % (2-4); Hematocrit 39.8 % (36-46); Hemoglobin 13.1 g/dL (12.0-16.0); Lymphocytes Absolute Auto 1100 /uL (1100-4500); Lymphocytes Percent Auto 15.3 % (25-40); Mean Corpuscular HGB Conc 32.9 % (30-36); Mean Corpuscular Hemoglobin 30.8 PG (26-34); Mean Corpuscular Volume 93.6 fL (80-100); Monocytes Absolute Auto 400 /uL (0-900); Monocytes Percent Auto 5.9 % (3-14); Neutrophils Absolute Auto 5600 /uL (1500-7000); Neutrophils Percent Auto 77.3 % (50-75); Platelet Count 269 X10^3/uL (150-400); Red Blood Cell Count 4.25 X10^6/uL (4.0-5.2); Red Cell Distribution Width 13.4 % (11.6-14.8); White Blood Cell Count 7.3 X10^3/uL (4.5-11.0)
[2021-09-10 16:29] LABS: Alanine Aminotransferase 37 IU/L (<35); Albumin 4.5 g/dL (3.5-5.0); Albumin Globulin Ratio 1.6 (1.0-2.8); Alkaline Phosphatase 62 U/L (38-126); Aspartate Aminotransferase 34 IU/L (14-36); Bilirubin Total 1.2 mg/dL (0.2-1.3); Bilirubin Unconjugated 1.1 mg/dL (0.0-1.1); Globulin 2.9 g/dL (1.7-4.1); HEMOLYSIS < 15 (0-50); Total Protein 7.4 g/dL (6.3-8.2)
== END ==
PROVIDERS: PCP Family Medicine; Referring Provider Internal Medicine Gastroenterology; Visit Provider Internal Medicine Gastroenterology
DX: K75.4 Autoimmune hepatitis (principal)
CPT/HCPCS: 36415; 80076; 85025

== ENCOUNTER 2021-09-11 20:11 | Emergency (ER) | payer OTHER, SELFPAY ==
[2021-09-11 20:49] VITALS: BP 134/81; PULSE 68; RESP 14; TEMP 36.7; O2SAT 97; BMI 37.1
[2021-09-11 21:21] LABS: Bacteria Urine Many (>30); RBC Urine 1-5/HPF (0-5/HPF); Squamous Epithelial Cell Urine 0-1 /HPF (0-5/HPF); WBC Urine 30-100/HPF (0-5/HPF)
[2021-09-11 21:22] LABS: Culture Indicated Urine Specimen Cultured
--- NOTE | 2021-09-11 22:33 | ED_ITS ---
HPI - Female Genitourinary General Chief complaint: Urogenital-Female Stated complaint: Bad bladder infection, immunity lowered-prescripti Time Seen by Provider: 09/11/21 22:31 Source: patient Mode of arrival: Ambulatory Limitations: no limitations History of Present Illness HPI Narrative: 51-year-old female nonsmoker with history of frequent urinary tract infections and immune compromise due to treatment for autoimmune hepatitis presents with classic symptoms of urinary tract infection. She has had burning, frequency and urgency over the course of the day and given her history of UTIs is quite confident she has another. She denies systemic findings such as fever chills nor nausea or vomiting. She has no back pain. Her last UTI was a few months ago was treated with Bactrim, cultures were pansensitive. She is otherwise well and free of complaint. She has had no chest pain or trouble breathing. She denies any vaginal bleeding or discharge. Related Data Home Medications Medication Instructions Recorded Confirmed azathioprine 100 mg tablet 100 mg PO DAILY 10/01/20 09/07/21 budesonide 3 mg 6 mg PO DAILY ea 05/12/21 09/07/21 capsule,delayed,extended release Previous Rx's Medication Instructions Recorded levothyroxine 88 mcg tablet See Rx Instructions .ROUTE 07/26/21 .COMPLEX #90 tablet sulfamethoxazole 800 1 tab PO BID 10 Days #20 tab 09/11/21 mg-trimethoprim 160 mg tablet (Bactrim DS) Allergies Allergy/AdvReac Type Severity Reaction Status Date / Time fluconazole [From Diflucan] Allergy Verified 09/11/21 20:49 ibuprofen Allergy Verified 09/11/21 20:49 NSAIDS (Non-Steroidal AdvReac Unknown Verified 09/11/21 20:49 Anti-Inflamma Review of Systems Review of Systems Narrative: GENERAL: Denies chills, fatigue, malaise, fever, sweats. HEENT: Denies sinus pain, ear pain, sore throat, difficulty swallowing, dizziness. RESPIRATORY: Denies dyspnea, cough, wheezing, hemoptysis, sputum. CARDIOVASCULAR: Denies chest pain, palpitations, orthopnea, edema, GASTROINTESTINAL: Denies nausea, vomiting, abdominal pain, diarrhea, constipation, melena. : See HPI MUSCULOSKELETAL: denies weakness, joint pain, or bony pain SKIN: Denies rash, skin lesions, or other NEUROLOGIC: Denies weakness, headache, numbness, change in speech, confusion, seizures, incoordination. PSYCHIATRIC: No concerning psychosocial issues. 12 point review of systems is negative except for those stated above Patient History Medical History Anemia Autoimmune hepatitis (~2019) Drug-induced hepatitis (~09/2019) Hypothyroidism (~1996) Kidney disease Recurrent UTI Sliding hiatal hernia (~2010) Surgical History Anesthesia History of hand surgery (~2016) History of partial hysterectomy (~2010) History of History of tubal ligation (~1996) Pilonidal cyst (~1990) S/P ureteral reimplantation Ulnar nerve damage (~2006) [place] teeth removed (~2006) alcohol intake frequency: 0-2 drinks per day Substance Use Type: does not use Exam Narrative Exam Narrative: GEN: AOx3 and in mild distress EYES: Pupils are equal, round, and reactive to light and accommodation. Extraoccular muscles are intact bilaterally. There is no subconjunctival hemorrhage or exudate. CHEST: Lungs are clear to auscultation bilaterally and free of wheezes, rales, or rhonchi. Heart rate is regular rhythm, there are no murmurs, clicks, rubs, or gallops. There is no chest wall tenderness. ABD: Abdomen is soft and nontender. There is no guarding or rebound. Bowel sounds are normal in all 4 quadrants. There is no mass or organomegaly. EXT: Full painless ROM of all extremities with no loss of sensation or strength. BACK: No flank pain or CVA tenderness SKIN: Warm, pink, and dry. No erythema or rash Initial Vital Signs Initial Vital Signs: Vital Signs Temperature 98.0 F 09/11/21 20:49 Pulse Rate 68 09/11/21 20:49 Respiratory Rate 14 09/11/21 20:49 Blood Pressure 134/81 09/11/21 20:49 Pulse Oximetry 97 09/11/21 20:49 Course Orders Ordered: ED Orders 09/11/21 20:55 Urine Culture Stat Urine Microscopic Stat Discontinued Medications Trimethoprim/Sulfamethoxazole (Trimeth/Sulfa 160/800 (Ds) Tablet) 1 tab PO NOW ONE Stop: 09/11/21 22:37 Last Admin: 09/11/21 22:43 Dose: 1 tab Documented by: ALFREDO Vital Signs Vital signs: Vital Signs - 8 hr 09/11/21 20:49 Temperature 98.0 F Pulse Rate 68 Respiratory Rate 14 Blood Pressure 134/81 Pulse Oximetry 97 MDM - Female Genitourinary Lab Data Labs: Lab Results 09/11/21 Range/Units 20:55 Urine RBC 1-5/hpf D (0-5/HPF) Urine WBC 30-100/hpf H (0-5/HPF) Ur Squamous Epith Cells 0-1 /hpf (0-5/HPF) Urine Bacteria Many (>30) H (None) Ur Culture Indicated? Specimen cultured Urine Dip Bedside Urine Glucose Negative Bedside Urine Bilirubin - Negative Bedside Urine Ketone - Negative Urine Specific [place] 1.015 Bedside Urine Occult Blood +++ Bedside Urine pH 6.0 Bedside Urine Protein - Negative Bedside Urine Urobilinogen - Negative Bedside Urine Nitrite - Negative Bedside Urine Leukocytes + 70 Esterase MDM Narrative Medical decision making narrative: Well-appearing female with classic history for UTI, urine is convincing and has been sent for culture. She has no systemic findings, old culture and sensitivity consulted, Bactrim chosen for this reason. Return precautions given and questions answered to her apparent satisfaction Discharge Plan Departure Patient Disposition: Home Clinical Impression: UTI (urinary tract infection) Qualifiers: Urinary tract infection type: acute cystitis Hematuria presence: without hematuria Qualified Code(s): N30.00 - Acute cystitis without hematuria Instructions: DI for Urinary Tract Infection (UTI) Activity Restrictions/Additional Instructions: *You have been diagnosed with [urinary tract infection. Your physical exam and vital signs are very reassuring. Your urine will be cultured. *What to do: *Please continue to take your regular medications as directed. [x ] New medication prescriptions sent to your pharmacy: [[facility] in [place] ] [ ] New medication written as a paper prescription [ ] No new medications given *Please follow up with your primary care provider in 2-3 days, call for an appointment. Let them know you were seen in the Emergency Department and that we ask that you be seen in follow up. We will electronically transmit a record of today's note if your PCP is in our system *If you do not have a primary care provider please contact the [facility] Resource line at [phone]. They will ask some questions about your medical history and help get you set up with a doctor in the community. *Return to Emergency Department if you should have any new, worsening or concerning symptoms, such as [fever greater than 101 F, shaking chills, worsening pain, persistent vomiting or other bothersome symptoms] Prescriptions: New sulfamethoxazole-trimethoprim [Bactrim DS] 800-160 mg tablet 1 tab PO BID 10 Days Qty: 20 RF: 0 No Action azathioprine 100 mg tablet 100 mg PO DAILY RF: 0 budesonide 3 mg capsule,delayed,extend.release 6 mg PO DAILY RF: 0 levothyroxine 88 mcg tablet See Rx Instructions .ROUTE .COMPLEX Qty: 90 RF: 1 Referrals: Gogo Pedro MD [Primary Care Provider] -
[2021-09-11] MEDS: TRIMETH/SULFA 160/800 (DS) TABLET 1 TAB PO (22:43)
== END 2021-09-11 22:44 | disposition home or self-care (01) ==
PROVIDERS: Emergency Provider Emergency Medicine; PCP Family Medicine
DX: N30.00 Acute cystitis without hematuria (principal)
CPT/HCPCS: 81003; 81015; 87077; 87086; 87186; 99283

== ENCOUNTER → 2021-10-06 10:42 | Outpatient (CLI) | payer OTHER, SELFPAY ==
--- NOTE | 2021-10-06 10:47 | DIET.PN1 ---
Dietary Progress Note One month f/u for 51y F who has experienced steroid induced weight gain. Used [employer] for two days to record food intake but too much work so stopped, however, has been making many changes to diet to support health and weight loss. Pt has been eating protein with breakfast which supports her energy levels throughout the day. She purchased some of the food substitutes so using most of the time including monkfruit products in place of sugar to support liver health and weight loss. Pt cut back on beef, mostly pork loin, turkey burger with meals, eating on smaller sized plate. Pt reports not as good with fresh veggies because they go bad quickly but has been doing more canned. Ht: 5'6 Wt: 226# (-4# in 1mo) Pt has been trying to exercise more, put treadmill and bike in house, will do with when he gets off work, just hasn't started yet. Pt enjoys line dancing, introduced her to the [employer] which is opening back up in October. She would like to attend music events to dance with . f/u in 5w to assess progress and problem solve barriers. Pt making good progress so far. Electronically Signed by: Katheryn Jeffrey 10/06/21 10:47 Clinical Dietitian [address] [address]
== END ==
PROVIDERS: PCP Family Medicine; Referring Provider Family Medicine; Visit Provider Family Medicine
DX: R63.5 Abnormal weight gain (principal); Z79.52 Long term (current) use of systemic steroids; Z71.3 Dietary counseling and surveillance; Z68.36 Body mass index [BMI] 36.0-36.9, adult
CPT/HCPCS: 97803

== ENCOUNTER → 2021-10-12 09:45 | Outpatient (CLI) | payer OTHER, SELFPAY ==
[2021-10-12 11:06] LABS: Add Manual Diff / Slide Review NO; Basophils Absolute Auto 100 /uL (0-100); Basophils Percent Auto 0.9 % (0-2); Eosinophils Absolute Auto 100 /uL (0-450); Eosinophils Percent Auto 1.6 % (2-4); Hematocrit 38.9 % (36-46); Hemoglobin 12.9 g/dL (12.0-16.0); Lymphocytes Absolute Auto 1400 /uL (1100-4500); Lymphocytes Percent Auto 23.7 % (25-40); Mean Corpuscular HGB Conc 33.2 % (30-36); Mean Corpuscular Hemoglobin 30.6 PG (26-34); Mean Corpuscular Volume 92.1 fL (80-100); Monocytes Absolute Auto 500 /uL (0-900); Neutrophils Absolute Auto 3700 /uL (1500-7000); Neutrophils Percent Auto 65.8 % (50-75); Platelet Count 269 X10^3/uL (150-400); Red Blood Cell Count 4.23 X10^6/uL (4.0-5.2); Red Cell Distribution Width 13.8 % (11.6-14.8); White Blood Cell Count 5.7 X10^3/uL (4.5-11.0)
[2021-10-12 11:07] LABS: Alanine Aminotransferase 24 IU/L (<35); Albumin 4.1 g/dL (3.5-5.0); Albumin Globulin Ratio 1.5 (1.0-2.8); Alkaline Phosphatase 62 U/L (38-126); Aspartate Aminotransferase 24 IU/L (14-36); Bilirubin Total 0.9 mg/dL (0.2-1.3); Bilirubin Unconjugated 0.9 mg/dL (0.0-1.1); Globulin 2.7 g/dL (1.7-4.1); HEMOLYSIS < 15 (0-50); Total Protein 6.8 g/dL (6.3-8.2)
== END ==
PROVIDERS: PCP Family Medicine; Referring Provider Internal Medicine Gastroenterology; Visit Provider Internal Medicine Gastroenterology
DX: K75.4 Autoimmune hepatitis (principal)
CPT/HCPCS: 36415; 80076; 85025

== ENCOUNTER → 2021-10-26 08:37 | Outpatient (CLI) | payer OTHER, SELFPAY ==
[2021-10-26 09:13] LABS: Add Manual Diff / Slide Review NO; Basophils Absolute Auto 100 /uL (0-100); Basophils Percent Auto 1.1 % (0-2); Eosinophils Absolute Auto 100 /uL (0-450); Eosinophils Percent Auto 1.8 % (2-4); Hematocrit 38.2 % (36-46); Lymphocytes Absolute Auto 1100 /uL (1100-4500); Lymphocytes Percent Auto 20.2 % (25-40); Monocytes Absolute Auto 400 /uL (0-900); Monocytes Percent Auto 7.1 % (3-14); Neutrophils Absolute Auto 3900 /uL (1500-7000); Neutrophils Percent Auto 69.8 % (50-75); Platelet Count 242 X10^3/uL (150-400); Red Cell Distribution Width 13.8 % (11.6-14.8); White Blood Cell Count 5.6 X10^3/uL (4.5-11.0)
[2021-10-26 09:45] LABS: Alanine Aminotransferase 34 IU/L (<35); Albumin 4.1 g/dL (3.5-5.0); Albumin Globulin Ratio 1.6 (1.0-2.8); Alkaline Phosphatase 70 U/L (38-126); Aspartate Aminotransferase 28 IU/L (14-36); Bilirubin Total 0.9 mg/dL (0.2-1.3); Bilirubin Unconjugated 0.9 mg/dL (0.0-1.1); Globulin 2.5 g/dL (1.7-4.1); HEMOLYSIS < 15 (0-50); Total Protein 6.6 g/dL (6.3-8.2)
== END ==
PROVIDERS: PCP Family Medicine; Referring Provider Internal Medicine Gastroenterology; Visit Provider Internal Medicine Gastroenterology
DX: K75.4 Autoimmune hepatitis (principal)
CPT/HCPCS: 36415; 80076; 85025

== ENCOUNTER → 2021-11-08 10:28 | Outpatient (CLI) | payer OTHER, SELFPAY ==
--- NOTE | 2021-11-08 10:33 | DIET.PN1 ---
Dietary Progress Note 51y F attending RD f/u for steroid induced weight gain. Pt feels like her nutrition plan is solid right now, working on portion control and regular eating throughout the day. Pt trying [employer] meal service and really enjoys it. Pt has plantar faciitis limiting her cardiovascular exercise. She is walking 10 minutes per day around her driveway outdoors. Pt has treadmill set up and worked c personal fitness trainer in past who has strength training routine set up for her which pt hopes to start soon. Pt exhibited good habits over , ate one roll but skipped desserts. Ht: 5'6 Wt: 225# (-1# in 1mo, -5# in 2mo) Discussed importance of strength training and regular physical activity to remove excess weight gained c steroid therapy. Reinforced pts good nutrition at this time. Monitoring/Evaluations: f/u in 4w Electronically Signed by: Katheryn Jeffrey 11/08/21 10:33 Clinical Dietitian [address] [address]
== END ==
PROVIDERS: PCP Family Medicine; Referring Provider Family Medicine; Visit Provider Family Medicine
DX: R63.5 Abnormal weight gain (principal); Z71.3 Dietary counseling and surveillance
CPT/HCPCS: 97803

== ENCOUNTER → 2021-11-29 13:02 | Outpatient (CLI) | payer OTHER, SELFPAY ==
[2021-11-29 13:54] LABS: Add Manual Diff / Slide Review NO; Basophils Absolute Auto 0 /uL (0-100); Basophils Percent Auto 0.5 % (0-2); Eosinophils Absolute Auto 100 /uL (0-450); Eosinophils Percent Auto 1.3 % (2-4); Hematocrit 37.8 % (36-46); Hemoglobin 12.7 g/dL (12.0-16.0); Lymphocytes Absolute Auto 1200 /uL (1100-4500); Lymphocytes Percent Auto 17.3 % (25-40); Mean Corpuscular HGB Conc 33.5 % (30-36); Mean Corpuscular Hemoglobin 30.7 PG (26-34); Mean Corpuscular Volume 91.5 fL (80-100); Monocytes Absolute Auto 500 /uL (0-900); Monocytes Percent Auto 6.5 % (3-14); Neutrophils Absolute Auto 5400 /uL (1500-7000); Neutrophils Percent Auto 74.4 % (50-75); Platelet Count 239 X10^3/uL (150-400); Red Blood Cell Count 4.13 X10^6/uL (4.0-5.2); Red Cell Distribution Width 13.9 % (11.6-14.8); White Blood Cell Count 7.2 X10^3/uL (4.5-11.0)
[2021-11-29 14:20] LABS: Alanine Aminotransferase 27 IU/L (<35); Albumin 4.1 g/dL (3.5-5.0); Albumin Globulin Ratio 1.5 (1.0-2.8); Alkaline Phosphatase 71 U/L (38-126); Aspartate Aminotransferase 26 IU/L (14-36); Bilirubin Total 1.1 mg/dL (0.2-1.3); Bilirubin Unconjugated 1.2 mg/dL (0.0-1.1); Globulin 2.8 g/dL (1.7-4.1); HEMOLYSIS < 15 (0-50); Total Protein 6.9 g/dL (6.3-8.2)
== END ==
PROVIDERS: PCP Family Medicine; Referring Provider Internal Medicine Gastroenterology; Visit Provider Internal Medicine Gastroenterology
DX: K75.4 Autoimmune hepatitis (principal)
CPT/HCPCS: 36415; 80076; 85025

== ENCOUNTER → 2021-12-31 15:25 | Outpatient (CLI) | payer OTHER, SELFPAY ==
[2021-12-31 16:43] LABS: Add Manual Diff / Slide Review NO; Basophils Absolute Auto 0 /uL (0-100); Basophils Percent Auto 0.7 % (0-2); Eosinophils Absolute Auto 100 /uL (0-450); Eosinophils Percent Auto 1.5 % (2-4); Hematocrit 38.1 % (36-46); Hemoglobin 12.9 g/dL (12.0-16.0); Lymphocytes Absolute Auto 1200 /uL (1100-4500); Lymphocytes Percent Auto 17.6 % (25-40); Mean Corpuscular HGB Conc 33.8 % (30-36); Mean Corpuscular Hemoglobin 30.7 PG (26-34); Mean Corpuscular Volume 90.8 fL (80-100); Monocytes Absolute Auto 400 /uL (0-900); Neutrophils Absolute Auto 5100 /uL (1500-7000); Neutrophils Percent Auto 74.2 % (50-75); Platelet Count 276 X10^3/uL (150-400); Red Blood Cell Count 4.19 X10^6/uL (4.0-5.2); Red Cell Distribution Width 13.9 % (11.6-14.8); White Blood Cell Count 6.8 X10^3/uL (4.5-11.0)
[2021-12-31 17:43] LABS: Alanine Aminotransferase 27 IU/L (<35); Albumin 4.2 g/dL (3.5-5.0); Albumin Globulin Ratio 1.5 (1.0-2.8); Alkaline Phosphatase 63 U/L (38-126); Aspartate Aminotransferase 25 IU/L (14-36); Bilirubin Total 0.6 mg/dL (0.2-1.3); Bilirubin Unconjugated 0.5 mg/dL (0.0-1.1); Globulin 2.8 g/dL (1.7-4.1); HEMOLYSIS < 15 (0-50)
== END ==
PROVIDERS: PCP Family Medicine; Referring Provider Internal Medicine Gastroenterology; Visit Provider Internal Medicine Gastroenterology
DX: K75.4 Autoimmune hepatitis (principal)
CPT/HCPCS: 36415; 80076; 85025

== ENCOUNTER → 2022-01-05 10:22 | Outpatient (CLI) | payer OTHER, SELFPAY ==
--- NOTE | 2022-01-05 11:10 | DIET.CONS ---
Dietary Consultation Note 52y F attending RD f/u for help with weight management after autoimmune hepatitis dx where pt gained weight from steroid use. Pt reports not doing as well nutritionally through the holidays because of frequent visitors, lots of eating out, and the fact that her daughter is getting so moving back home. Pt recently had birthday, someone brought big cake. Pt had two slices and felt awful. Decided to toss cake and going shopping for healthy food at commissary this evening to [facility]. Pt curious about meat substitutes as she eats quite a lot of meat, her daughter is experimenting with Im[employer] burgers, etc. No issues with trying these foods. RD and patient discussed trying the fasting-mimicking diet to help with weight loss and cellular support. Pt will do one cycle and if tolerating, will repeat for three cycles. Pt will follow FMD for five consecutive days once every 30 days as follows: B: pb toast L: large salad c 1/2 avocado D: large portion trivedi and vegetable soup Sn: apple, 10 almonds f/u in 8w to assess progress and problem solve barriers. Electronically Signed by: Katheryn Jeffrey 01/05/22 11:10 Clinical Dietitian [address] [place] [address]
== END ==
PROVIDERS: PCP Family Medicine; Referring Provider Family Medicine; Visit Provider Family Medicine
DX: K75.4 Autoimmune hepatitis (principal); Z71.3 Dietary counseling and surveillance
CPT/HCPCS: 97803

== ENCOUNTER → 2022-01-26 13:39 | Outpatient (CLI) | payer OTHER, SELFPAY | PROVIDERS: PCP Family Medicine; Visit Provider Physician Assistant | DX: R10.9 Unspecified abdominal pain (principal) | CPT/HCPCS: 87086 ==

== ENCOUNTER → 2022-03-28 13:07 | Outpatient (CLI) | payer OTHER, SELFPAY ==
[2022-03-28 14:14] LABS: Add Manual Diff / Slide Review NO; Basophils Absolute Auto 100 /uL (0-100); Basophils Percent Auto 1.1 % (0-2); Eosinophils Absolute Auto 100 /uL (0-450); Eosinophils Percent Auto 1.5 % (2-4); Hematocrit 37.1 % (36-46); Hemoglobin 12.6 g/dL (12.0-16.0); Lymphocytes Absolute Auto 1200 /uL (1100-4500); Lymphocytes Percent Auto 18.6 % (25-40); Mean Corpuscular Hemoglobin 30.6 PG (26-34); Monocytes Absolute Auto 400 /uL (0-900); Monocytes Percent Auto 6.8 % (3-14); Neutrophils Absolute Auto 4600 /uL (1500-7000); Platelet Count 249 X10^3/uL (150-400); Red Blood Cell Count 4.12 X10^6/uL (4.0-5.2); Red Cell Distribution Width 14.2 % (11.6-14.8); White Blood Cell Count 6.4 X10^3/uL (4.5-11.0)
[2022-03-28 14:26] LABS: Cholesterol 260 mg/dL (140-199); HDL Cholesterol 61 mg/dL (40-60); LDL Cholesterol Calculated 174 mg/dL (<100); Triglycerides 124 mg/dL (35-150)
[2022-03-28 14:31] LABS: Hemoglobin A1C% w Est Avg Glu 5.6 % (4.0-6.0)
[2022-03-28 14:58] LABS: TSH w/ Reflex to FT4 3.53 uIU/mL (0.47-4.68)
[2022-03-30 10:49] LABS: Alanine Aminotransferase 27 IU/L (<35); Albumin 4.2 g/dL (3.5-5.0); Albumin Globulin Ratio 1.4 (1.0-2.8); Alkaline Phosphatase 83 U/L (38-126); Aspartate Aminotransferase 29 IU/L (14-36); Bilirubin Total 0.7 mg/dL (0.2-1.3); Bilirubin Unconjugated 0.7 mg/dL (0.0-1.1); Globulin 2.9 g/dL (1.7-4.1); HEMOLYSIS < 15 (0-50); Total Protein 7.1 g/dL (6.3-8.2)
== END ==
PROVIDERS: PCP Family Medicine; Referring Provider Internal Medicine Gastroenterology; Visit Provider Internal Medicine Gastroenterology
DX: K75.4 Autoimmune hepatitis (principal); E03.9 Hypothyroidism, unspecified; E66.9 Obesity, unspecified
CPT/HCPCS: 36415; 80061; 80076; 83036; 84443; 85025

== ENCOUNTER → 2022-04-01 09:39 | Outpatient (CLI) | payer OTHER, SELFPAY ==
[2022-04-01 10:32] LABS: Cholesterol 250 mg/dL (140-199); HDL Cholesterol 62 mg/dL (40-60); LDL Cholesterol Calculated 171 mg/dL (<100); Triglycerides 87 mg/dL (35-150)
== END ==
PROVIDERS: PCP Family Medicine; Referring Provider Family Medicine; Visit Provider Family Medicine
DX: Z86.79 Personal history of other diseases of the circulatory system (principal)
CPT/HCPCS: 36415; 80061

== ENCOUNTER → 2022-04-07 11:03 | Outpatient (CLI) | payer OTHER, SELFPAY ==
--- NOTE | 2022-04-07 12:00 | DIET.CONS ---
Dietary Consultation Note Pt attending 4mo f/u for help with weight loss after steroid use for autoimmune hepatitis (+60#) pt presents with new labs showing liver enzymes WNL but LDL 171. Pt has done research on supporting her cholesterol and wanted to run by RD for consideration. Pt plans to eat beans, flaxseed, high fiber cereal and cut out dairy fat/meat fat to see how can impact LDL. Pt unable to take statin due to liver hx of dysfunction. Pt starting BHIP therapy in a few weeks for help with coping with big life changes over the past 2 years. Pt has lost 10# over past 1mo as she rededicated herself to physical activity, is currently 222# down from 230# in Dec when I last saw her. Provided pt with handout on supporting healthy cholesterol levels and provided supportive counseling for life changes. Pt feeling overwhelmed regarding having to give up so many foods she likes as she already gave up etoh 2y ago because she knows importance of liver health. F/u scheduled for May after next set of labs to help direct nutrition interventions. Electronically Signed by: Katheryn Jeffrey 04/07/22 12:00 Clinical Dietitian [address] [address]
== END ==
PROVIDERS: PCP Family Medicine; Referring Provider Family Medicine; Visit Provider Family Medicine
DX: K75.4 Autoimmune hepatitis (principal); Z79.52 Long term (current) use of systemic steroids; Z71.3 Dietary counseling and surveillance
CPT/HCPCS: 97803

== ENCOUNTER → 2022-06-29 08:17 | Outpatient (CLI) | payer OTHER, SELFPAY ==
[2022-06-29 09:38] LABS: Add Manual Diff / Slide Review NO; Basophils Absolute Auto 0 /uL (0-100); Eosinophils Absolute Auto 100 /uL (0-450); Eosinophils Percent Auto 1.9 % (2-4); Hematocrit 38.4 % (36-46); Hemoglobin 12.8 g/dL (12.0-16.0); Lymphocytes Absolute Auto 1000 /uL (1100-4500); Lymphocytes Percent Auto 20.8 % (25-40); Mean Corpuscular HGB Conc 33.2 % (30-36); Mean Corpuscular Hemoglobin 30.4 PG (26-34); Mean Corpuscular Volume 91.5 fL (80-100); Monocytes Absolute Auto 400 /uL (0-900); Monocytes Percent Auto 8.2 % (3-14); Neutrophils Absolute Auto 3300 /uL (1500-7000); Neutrophils Percent Auto 68.1 % (50-75); Platelet Count 251 X10^3/uL (150-400); Red Cell Distribution Width 14.5 % (11.6-14.8); White Blood Cell Count 4.9 X10^3/uL (4.5-11.0)
[2022-06-29 10:19] LABS: Cholesterol 238 mg/dL (140-199); HDL Cholesterol 59 mg/dL (40-60); LDL Cholesterol Calculated 162 mg/dL (<100); Triglycerides 84 mg/dL (35-150)
[2022-06-29 10:22] LABS: Alanine Aminotransferase 24 IU/L (<35); Albumin 4.2 g/dL (3.5-5.0); Albumin Globulin Ratio 1.8 (1.0-2.8); Alkaline Phosphatase 73 U/L (38-126); Aspartate Aminotransferase 30 IU/L (14-36); Bilirubin Total 1.3 mg/dL (0.2-1.3); Bilirubin Unconjugated 1.2 mg/dL (0.0-1.1); Globulin 2.4 g/dL (1.7-4.1); HEMOLYSIS < 15 (0-50); Total Protein 6.6 g/dL (6.3-8.2)
== END ==
PROVIDERS: PCP Family Medicine; Referring Provider Internal Medicine Gastroenterology; Visit Provider Internal Medicine Gastroenterology
DX: K75.4 Autoimmune hepatitis (principal); E78.5 Hyperlipidemia, unspecified
CPT/HCPCS: 36415; 80061; 80076; 85025

== ENCOUNTER → 2022-09-28 13:40 | Outpatient (CLI) | payer OTHER, SELFPAY ==
[2022-09-28 14:43] LABS: Add Manual Diff / Slide Review NO; Basophils Absolute Auto 0 /uL (0-100); Basophils Percent Auto 0.6 % (0-2); Eosinophils Absolute Auto 100 /uL (0-450); Eosinophils Percent Auto 1.1 % (2-4); Hematocrit 37.7 % (36-46); Hemoglobin 12.5 g/dL (12.0-16.0); Lymphocytes Absolute Auto 1200 /uL (1100-4500); Lymphocytes Percent Auto 18.7 % (25-40); Mean Corpuscular HGB Conc 33.2 % (30-36); Mean Corpuscular Hemoglobin 30.4 PG (26-34); Mean Corpuscular Volume 91.7 fL (80-100); Monocytes Absolute Auto 400 /uL (0-900); Monocytes Percent Auto 5.8 % (3-14); Neutrophils Absolute Auto 4900 /uL (1500-7000); Neutrophils Percent Auto 73.8 % (50-75); Platelet Count 261 X10^3/uL (150-400); Red Blood Cell Count 4.12 X10^6/uL (4.0-5.2); Red Cell Distribution Width 14.2 % (11.6-14.8); White Blood Cell Count 6.6 X10^3/uL (4.5-11.0)
[2022-09-28 15:24] LABS: Alanine Aminotransferase 25 IU/L (<35); Albumin 4.3 g/dL (3.5-5.0); Albumin Globulin Ratio 1.5 (1.0-2.8); Alkaline Phosphatase 80 U/L (38-126); Aspartate Aminotransferase 24 IU/L (14-36); Bilirubin Total 1.1 mg/dL (0.2-1.3); Bilirubin Unconjugated 1.1 mg/dL (0.0-1.1); Globulin 2.9 g/dL (1.7-4.1); HEMOLYSIS < 15 (0-50); Total Protein 7.2 g/dL (6.3-8.2)
== END ==
PROVIDERS: PCP Family Medicine; Referring Provider Internal Medicine Gastroenterology; Visit Provider Internal Medicine Gastroenterology
DX: K75.4 Autoimmune hepatitis (principal)
CPT/HCPCS: 36415; 80076; 85025

== ENCOUNTER → 2022-10-27 14:40 | Outpatient (CLI) | payer OTHER, SELFPAY ==
[2022-10-27 15:58] LABS: Add Manual Diff / Slide Review NO; Basophils Absolute Auto 0 /uL (0-100); Basophils Percent Auto 0.8 % (0-2); Eosinophils Absolute Auto 100 /uL (0-450); Eosinophils Percent Auto 2.3 % (2-4); Hematocrit 38.2 % (36-46); Hemoglobin 12.5 g/dL (12.0-16.0); Lymphocytes Absolute Auto 1200 /uL (1100-4500); Lymphocytes Percent Auto 19.8 % (25-40); Mean Corpuscular HGB Conc 32.8 % (30-36); Mean Corpuscular Volume 91.5 fL (80-100); Monocytes Absolute Auto 400 /uL (0-900); Monocytes Percent Auto 7.3 % (3-14); Neutrophils Absolute Auto 4200 /uL (1500-7000); Neutrophils Percent Auto 69.8 % (50-75); Platelet Count 278 X10^3/uL (150-400); Red Blood Cell Count 4.18 X10^6/uL (4.0-5.2)
[2022-10-27 16:16] LABS: Alanine Aminotransferase 28 IU/L (<35); Albumin 4.5 g/dL (3.5-5.0); Albumin Globulin Ratio 1.3 (1.0-2.8); Alkaline Phosphatase 75 U/L (38-126); Aspartate Aminotransferase 26 IU/L (14-36); Bilirubin Total 0.8 mg/dL (0.2-1.3); Bilirubin Unconjugated 0.7 mg/dL (0.0-1.1); Globulin 3.4 g/dL (1.7-4.1); HEMOLYSIS < 15 (0-50); Total Protein 7.9 g/dL (6.3-8.2)
== END ==
PROVIDERS: PCP Family Medicine; Referring Provider Internal Medicine Gastroenterology; Visit Provider Internal Medicine Gastroenterology
DX: K75.4 Autoimmune hepatitis (principal)
CPT/HCPCS: 36415; 80076; 85025

== ENCOUNTER → 2022-11-29 11:19 | Outpatient (CLI) | payer OTHER, SELFPAY ==
[2022-11-29 13:33] LABS: Add Manual Diff / Slide Review NO; Basophils Absolute Auto 100 /uL (0-100); Basophils Percent Auto 1.1 % (0-2); Eosinophils Absolute Auto 100 /uL (0-450); Eosinophils Percent Auto 2.1 % (2-4); Hematocrit 37.8 % (36-46); Hemoglobin 12.4 g/dL (12.0-16.0); Lymphocytes Absolute Auto 900 /uL (1100-4500); Lymphocytes Percent Auto 17.7 % (25-40); Mean Corpuscular HGB Conc 32.9 % (30-36); Mean Corpuscular Hemoglobin 29.7 PG (26-34); Mean Corpuscular Volume 90.2 fL (80-100); Monocytes Absolute Auto 400 /uL (0-900); Monocytes Percent Auto 7.7 % (3-14); Neutrophils Absolute Auto 3800 /uL (1500-7000); Neutrophils Percent Auto 71.4 % (50-75); Platelet Count 292 X10^3/uL (150-400); Red Blood Cell Count 4.18 X10^6/uL (4.0-5.2); Red Cell Distribution Width 13.8 % (11.6-14.8); White Blood Cell Count 5.4 X10^3/uL (4.5-11.0)
[2022-11-29 14:04] LABS: Alanine Aminotransferase 29 IU/L (<35); Albumin 4.2 g/dL (3.5-5.0); Albumin Globulin Ratio 1.4 (1.0-2.8); Alkaline Phosphatase 73 U/L (38-126); Aspartate Aminotransferase 25 IU/L (14-36); Bilirubin Unconjugated 0.7 mg/dL (0.0-1.1); Globulin 2.9 g/dL (1.7-4.1); HEMOLYSIS < 15 (0-50); Total Protein 7.1 g/dL (6.3-8.2)
== END ==
PROVIDERS: PCP Family Medicine; Referring Provider Internal Medicine Gastroenterology; Visit Provider Internal Medicine Gastroenterology
DX: K75.4 Autoimmune hepatitis (principal); D84.9 Immunodeficiency, unspecified
CPT/HCPCS: 36415; 80076; 85025

== ENCOUNTER → 2022-12-14 09:10 | Outpatient (CLI) | payer OTHER, SELFPAY ==
--- NOTE | 2022-12-14 09:11 | DI.MRI.S_ITS ---
PROCEDURE: MR LUMBAR SPINE WO CON INDICATIONS: Right lower back pain radiating down legs TECHNIQUE: Noncontrast sagittal T1 spin echo and T2 fast echo, sagittal STIR, and T2 fast spin echo through the lumbar spine. In cases with scoliosis, additional coronal T2 fast spin echo may be performed. COMPARISON: None. FINDINGS: Image quality: Excellent. Alignment and Curvature: Normal alignment and vertebral body height. Bone Marrow: No suspicious focal marrow signal abnormality or bone marrow edema. Spinal Cord: Normal position and appearance of the conus. Regional Soft Tissues: Prevertebral and paraspinous soft tissues demonstrate no acute finding. T12-L1: Normal appearance. L1-L2: Normal appearance. L2-L3: Normal appearance. L3-L4: Mild neural foraminal narrowing due to foraminal components of a diffuse disc bulge and facet hypertrophy. L4-L5: Disc bulge flattens the ventral thecal sac. Mild displacement of the descending bilateral L5 nerve roots, left greater than right, within both subarticular zones. Mild neural foraminal narrowing due to foraminal components of the disc bulge and moderate facet hypertrophy. L5-S1: Disc bulge without S1 nerve root displacement. No neural foraminal narrowing. Moderate facet hypertrophy. IMPRESSION: Moderate facet hypertrophy from L3-L4 through L5-S1. Mild subarticular zone and neural foraminal narrowing at L4-L5. Dictated by: Fritz Benítez M.D. on 12/14/2022 at 12:43 Approved by: Fritz Benítez M.D. on 12/14/2022 at 12:45
== END ==
PROVIDERS: PCP Family Medicine; Referring Provider Family Medicine; Visit Provider Family Medicine
DX: M47.816 Spondylosis without myelopathy or radiculopathy, lumbar region (principal); M47.817 Spondylosis without myelopathy or radiculopathy, lumbosacral region; M48.061 Spinal stenosis, lumbar region without neurogenic claudication; M54.50 Low back pain, unspecified
CPT/HCPCS: 72148

== ENCOUNTER → 2023-03-09 08:57 | Outpatient (CLI) | payer OTHER, SELFPAY ==
[2023-03-09 10:41] LABS: Add Manual Diff / Slide Review NO; Basophils Absolute Auto 100 /uL (0-100); Basophils Percent Auto 1.3 % (0-2); Eosinophils Absolute Auto 200 /uL (0-450); Eosinophils Percent Auto 4.3 % (2-4); Hematocrit 36.4 % (36-46); Hemoglobin 12.4 g/dL (12.0-16.0); Lymphocytes Absolute Auto 900 /uL (1100-4500); Lymphocytes Percent Auto 18.6 % (25-40); Mean Corpuscular HGB Conc 33.9 % (30-36); Mean Corpuscular Volume 88.4 fL (80-100); Monocytes Absolute Auto 500 /uL (0-900); Monocytes Percent Auto 9.3 % (3-14); Neutrophils Absolute Auto 3300 /uL (1500-7000); Neutrophils Percent Auto 66.5 % (50-75); Platelet Count 248 X10^3/uL (150-400); Red Blood Cell Count 4.12 X10^6/uL (4.0-5.2); Red Cell Distribution Width 14.2 % (11.6-14.8); White Blood Cell Count 4.9 X10^3/uL (4.5-11.0)
[2023-03-09 11:08] LABS: Alanine Aminotransferase 22 IU/L (<35); Albumin 3.9 g/dL (3.5-5.0); Albumin Globulin Ratio 1.2 (1.0-2.8); Alkaline Phosphatase 74 U/L (38-126); Aspartate Aminotransferase 23 IU/L (14-36); Bilirubin Total 0.8 mg/dL (0.2-1.3); Bilirubin Unconjugated 0.6 mg/dL (0.0-1.1); Globulin 3.2 g/dL (1.7-4.1); HEMOLYSIS < 15 (0-50); Total Protein 7.1 g/dL (6.3-8.2)
[2023-03-09 11:11] LABS: Alanine Aminotransferase 22 IU/L (<35); Albumin 3.9 g/dL (3.5-5.0); Albumin Globulin Ratio 1.3 (1.0-2.8); Alkaline Phosphatase 74 U/L (38-126); Aspartate Aminotransferase 22 IU/L (14-36); BUN Creatinine Ratio 17.4 (6-22); Bilirubin Total 0.7 mg/dL (0.2-1.3); Blood Urea Nitrogen 16 mg/dL (7-17); Calcium 9.1 mg/dL (8.4-10.2); Carbon Dioxide 28 mmol/L (22-32); Chloride 102 mmol/L (98-107); Cholesterol 197 mg/dL (140-199); Estimated Glomerular Filt Rate > 60 mL/min (>60); Globulin 3.1 g/dL (1.7-4.1); Glucose 89 mg/dL (70-100); HDL Cholesterol 46 mg/dL (40-60); HEMOLYSIS < 15 (0-50); LDL Cholesterol Calculated 131 mg/dL (<100); Potassium 4.1 mmol/L (3.4-5.1); Sodium 137 mmol/L (137-145); Triglycerides 99 mg/dL (35-150)
[2023-03-09 12:09] LABS: TSH w/ Reflex to FT4 1.38 uIU/mL (0.47-4.68)
== END ==
PROVIDERS: PCP Family Medicine; Referring Provider Internal Medicine Gastroenterology; Visit Provider Internal Medicine Gastroenterology
DX: K75.4 Autoimmune hepatitis (principal); E78.5 Hyperlipidemia, unspecified; E03.9 Hypothyroidism, unspecified
CPT/HCPCS: 36415; 80053; 80061; 80076; 84443; 85025

== ENCOUNTER → 2023-06-12 15:08 | Outpatient (CLI) | payer OTHER, SELFPAY ==
[2023-06-12 15:46] LABS: Add Manual Diff / Slide Review NO; Basophils Absolute Auto 100 /uL (0-100); Eosinophils Absolute Auto 200 /uL (0-450); Eosinophils Percent Auto 3.2 % (2-4); Hematocrit 35.6 % (36-46); Hemoglobin 12.2 g/dL (12.0-16.0); Lymphocytes Absolute Auto 1000 /uL (1100-4500); Lymphocytes Percent Auto 17.1 % (25-40); Mean Corpuscular HGB Conc 34.2 % (30-36); Mean Corpuscular Hemoglobin 30.3 PG (26-34); Mean Corpuscular Volume 88.6 fL (80-100); Monocytes Absolute Auto 400 /uL (0-900); Monocytes Percent Auto 7.2 % (3-14); Neutrophils Absolute Auto 4200 /uL (1500-7000); Neutrophils Percent Auto 71.5 % (50-75); Platelet Count 274 X10^3/uL (150-400); Red Blood Cell Count 4.02 X10^6/uL (4.0-5.2); Red Cell Distribution Width 14.5 % (11.6-14.8); White Blood Cell Count 5.8 X10^3/uL (4.5-11.0)
[2023-06-12 16:01] LABS: Alanine Aminotransferase 24 IU/L (<35); Albumin 4.2 g/dL (3.5-5.0); Albumin Globulin Ratio 1.4 (1.0-2.8); Alkaline Phosphatase 70 U/L (38-126); Aspartate Aminotransferase 21 IU/L (14-36); Bilirubin Total 0.6 mg/dL (0.2-1.3); Bilirubin Unconjugated 0.5 mg/dL (0.0-1.1); HEMOLYSIS < 15 (0-50); Total Protein 7.2 g/dL (6.3-8.2)
== END ==
PROVIDERS: PCP Family Medicine; Referring Provider Internal Medicine Gastroenterology; Visit Provider Internal Medicine Gastroenterology
DX: K75.4 Autoimmune hepatitis (principal)
CPT/HCPCS: 36415; 80076; 85025

== ENCOUNTER → 2023-09-13 10:24 | Outpatient (CLI) | payer OTHER, SELFPAY ==
[2023-09-13 11:21] LABS: Add Manual Diff / Slide Review NO; Basophils Absolute Auto 0 /uL (0-100); Basophils Percent Auto 0.9 % (0-2); Eosinophils Absolute Auto 100 /uL (0-450); Eosinophils Percent Auto 2.8 % (2-4); Hematocrit 35.9 % (36-46); Hemoglobin 12.2 g/dL (12.0-16.0); Lymphocytes Absolute Auto 900 /uL (1100-4500); Lymphocytes Percent Auto 18.4 % (25-40); Mean Corpuscular HGB Conc 33.9 % (30-36); Mean Corpuscular Hemoglobin 30.1 PG (26-34); Mean Corpuscular Volume 88.8 fL (80-100); Monocytes Absolute Auto 300 /uL (0-900); Monocytes Percent Auto 6.5 % (3-14); Neutrophils Absolute Auto 3500 /uL (1500-7000); Neutrophils Percent Auto 71.4 % (50-75); Platelet Count 252 X10^3/uL (150-400); Red Blood Cell Count 4.04 X10^6/uL (4.0-5.2); Red Cell Distribution Width 13.6 % (11.6-14.8); White Blood Cell Count 4.9 X10^3/uL (4.5-11.0)
[2023-09-13 11:45] LABS: Alanine Aminotransferase 23 IU/L (<35); Albumin 4.2 g/dL (3.5-5.0); Albumin Globulin Ratio 1.4 (1.0-2.8); Alkaline Phosphatase 61 U/L (38-126); Aspartate Aminotransferase 25 IU/L (14-36); Bilirubin Total 0.9 mg/dL (0.2-1.3); Bilirubin Unconjugated 0.8 mg/dL (0.0-1.1); HEMOLYSIS < 15 (0-50); Total Protein 7.2 g/dL (6.3-8.2)
== END ==
PROVIDERS: PCP Family Medicine; Referring Provider Internal Medicine Gastroenterology; Visit Provider Internal Medicine Gastroenterology
DX: K75.4 Autoimmune hepatitis (principal)
CPT/HCPCS: 36415; 80076; 85025

== ENCOUNTER → 2023-11-13 13:06 | Outpatient (CLI) | payer OTHER, SELFPAY ==
[2023-11-13 14:42] LABS: Add Manual Diff / Slide Review NO; Basophils Absolute Auto 100 /uL (0-100); Eosinophils Absolute Auto 300 /uL (0-450); Eosinophils Percent Auto 4.9 % (2-4); Hemoglobin 12.8 g/dL (12.0-16.0); Lymphocytes Absolute Auto 1100 /uL (1100-4500); Lymphocytes Percent Auto 22.1 % (25-40); Mean Corpuscular HGB Conc 33.8 % (30-36); Mean Corpuscular Hemoglobin 29.6 PG (26-34); Mean Corpuscular Volume 87.6 fL (80-100); Monocytes Absolute Auto 400 /uL (0-900); Monocytes Percent Auto 7.2 % (3-14); Neutrophils Absolute Auto 3400 /uL (1500-7000); Neutrophils Percent Auto 64.8 % (50-75); Platelet Count 262 X10^3/uL (150-400); Red Blood Cell Count 4.34 X10^6/uL (4.0-5.2); Red Cell Distribution Width 14.3 % (11.6-14.8); White Blood Cell Count 5.2 X10^3/uL (4.5-11.0)
[2023-11-13 15:06] LABS: Alanine Aminotransferase 25 IU/L (<35); Albumin 4.1 g/dL (3.5-5.0); Albumin Globulin Ratio 1.5 (1.0-2.8); Alkaline Phosphatase 71 U/L (38-126); Aspartate Aminotransferase 23 IU/L (14-36); Bilirubin Total 0.7 mg/dL (0.2-1.3); Bilirubin Unconjugated 0.4 mg/dL (0.0-1.1); Globulin 2.8 g/dL (1.7-4.1); HEMOLYSIS < 15 (0-50); Total Protein 6.9 g/dL (6.3-8.2)
== END ==
PROVIDERS: PCP Family Medicine; Referring Provider Internal Medicine Gastroenterology; Visit Provider Internal Medicine Gastroenterology
DX: K75.4 Autoimmune hepatitis (principal)
CPT/HCPCS: 36415; 80076; 85025

== ENCOUNTER → 2024-02-01 10:24 | Outpatient (CLI) | payer OTHER, SELFPAY ==
--- NOTE | 2024-02-01 10:24 | DI.RAD.S_ITS ---
Bone Density Report Name: AMIRA CURRIE Age: 54 Sex: Female Ethnicity: White Date of : 1970 Indication: osteopenia; Referring Provider: ESTEE NAVA Study: Bone densitometry was performed. Exam Date: February 01, 2024 Accession number: [id number] Bone Density: Region BMD T-score Z-score Classification AP Spine(L1-L4) 0.951 -0.9 0.1 Normal Femoral Neck (Left) 0.836 -0.1 0.8 Normal Total Hip (Left) 0.959 0.1 0.7 Normal Femoral Neck (Right) 0.742 -1.0 0.0 Normal Total Hip (Right) 0.998 0.5 1.0 Normal Total Hip Mean 0.978 0.3 0.9 Normal World Health Organization criteria for BMD impression classify patients as: Normal (T-score at or above -1.0), Osteopenia (T-score between -1.0 and -2.5), or Osteoporosis (T-score at or below -2.5). 10-year Fracture Risk: FRAX not reported because: All T-scores for Spine Total, Hip Total, Femoral Neck at or above -1.0 Previous Exams: -- Region Exam Age BMD T-score BMD Change BMD Change Date g/cm2 vs Baseline vs Previous -- AP Spine (L1-L4) 02/01/2024 54 0.951 -0.9 0.052 (5.8%)# 0.052 (5.8%)# 06/09/2021 51 0.898 -1.4 Total Hip(Left) 02/01/2024 54 0.959 0.1 0.001 (0.2%)# 0.001 (0.2%)# 06/09/2021 51 0.957 0.1 Total Hip(Right) 02/01/2024 54 0.998 0.5 0.063 (6.7%)# 0.063 (6.7%)# 06/09/2021 51 0.935 -0.1 -- *Denotes significance at 95% confidence level, LSC for AP Spine = 0.022 g/cm2, LSC for Total Hip = 0.027 g/cm2 # Denotes dissimilar scan types or analysis methods Impression: The patient has normal bone mass. No significant bone loss was observed. Discussion: BONE DENSITY IS ABOVE THE MINIMUM DESIRABLE LEVEL AT ALL SKELETAL SITES TESTED. This patient's bone mineral density is above the minimum desirable level (T-score -1.0 or better) at all sites measured. The patient should follow a healthful lifestyle (good nutrition with adequate calcium and vitamin D, and appropriate weight-bearing exercise). Follow-Up: Consider repeating this study in 5 years or sooner if there is some new clinical indication. Reported by: RAMY VILLANUEVA MD on 02/01/2024 10:53:00 AM.
== END ==
PROVIDERS: PCP Family Medicine; Referring Provider Family Medicine; Visit Provider Family Medicine
DX: M81.0 Age-related osteoporosis without current pathological fracture (principal)
CPT/HCPCS: 77080

== ENCOUNTER → 2024-02-09 11:03 | Outpatient (CLI) | payer OTHER, SELFPAY ==
[2024-02-09 12:49] LABS: Add Manual Diff / Slide Review NO; Basophils Absolute Auto 100 /uL (0-100); Basophils Percent Auto 1.1 % (0-2); Eosinophils Absolute Auto 100 /uL (0-450); Eosinophils Percent Auto 2.8 % (2-4); Hematocrit 37.1 % (36-46); Hemoglobin 12.5 g/dL (12.0-16.0); Lymphocytes Absolute Auto 1500 /uL (1100-4500); Lymphocytes Percent Auto 33.3 % (25-40); Mean Corpuscular HGB Conc 33.6 % (30-36); Mean Corpuscular Hemoglobin 29.5 PG (26-34); Mean Corpuscular Volume 87.9 fL (80-100); Monocytes Absolute Auto 500 /uL (0-900); Neutrophils Absolute Auto 2300 /uL (1500-7000); Neutrophils Percent Auto 50.8 % (50-75); Platelet Count 239 X10^3/uL (150-400); Red Blood Cell Count 4.22 X10^6/uL (4.0-5.2); Red Cell Distribution Width 14.3 % (11.6-14.8); White Blood Cell Count 4.6 X10^3/uL (4.5-11.0)
== END ==
PROVIDERS: PCP Family Medicine; Referring Provider Internal Medicine Gastroenterology; Visit Provider Internal Medicine Gastroenterology
DX: K75.4 Autoimmune hepatitis (principal); D84.9 Immunodeficiency, unspecified
CPT/HCPCS: 36415; 85025

== ENCOUNTER → 2024-02-12 10:10 | Outpatient (CLI) | payer OTHER, SELFPAY ==
[2024-02-12 11:40] LABS: Alanine Aminotransferase 22 IU/L (<35); Albumin 4.2 g/dL (3.5-5.0); Albumin Globulin Ratio 1.4 (1.0-2.8); Alkaline Phosphatase 61 U/L (38-126); Aspartate Aminotransferase 21 IU/L (14-36); Bilirubin Total 0.9 mg/dL (0.2-1.3); Bilirubin Unconjugated 0.7 mg/dL (0.0-1.1); Globulin 2.9 g/dL (1.7-4.1); HEMOLYSIS < 15 (0-50); Total Protein 7.1 g/dL (6.3-8.2)
== END ==
PROVIDERS: PCP Family Medicine; Referring Provider Internal Medicine Gastroenterology; Visit Provider Internal Medicine Gastroenterology
DX: K75.4 Autoimmune hepatitis (principal); D84.9 Immunodeficiency, unspecified
CPT/HCPCS: 80076

== ENCOUNTER → 2024-04-11 07:40 | Outpatient (CLI) | payer OTHER, SELFPAY ==
--- NOTE | 2024-04-11 07:42 | DI.RAD.S_ITS ---
PROCEDURE: XR LUMBAR SPINE MIN 4V INDICATIONS: low back pain TECHNIQUE: 5 views of the lumbar spine were acquired, including bilateral oblique views. COMPARISON: [facility], MR, MR LUMBAR SPINE WO CON, 12/14/2022, 9:19. FINDINGS: Bones: 5 nonrib-bearing vertebrae are present. There is normal bony alignment. No vertebral body compression fractures. No suspicious bony lesions. Multilevel degenerative disc disease, moderate at L 4-L5, mild at L3-L4 and L5-S1. Moderate facet arthropathy at L4-L5 and L5-S1. Soft tissues: Overlying bowel gas pattern is normal. No suspicious soft tissue calcifications. Oblique images: No pars defects. IMPRESSION: Moderate degenerative disc and facet disease as described. Dictated by: Sandrita Wood M.D. on 04/11/2024 at 10:20 Approved by: Sandrita Wood M.D. on 04/11/2024 at 10:22
== END ==
PROVIDERS: PCP Family Medicine; Referring Provider Anesthesiology; Visit Provider Anesthesiology
DX: M51.36 Other intervertebral disc degeneration, lumbar region (principal); M51.37 Other intervertebral disc degeneration, lumbosacral region; M47.816 Spondylosis without myelopathy or radiculopathy, lumbar region; M47.817 Spondylosis without myelopathy or radiculopathy, lumbosacral region; M54.50 Low back pain, unspecified
CPT/HCPCS: 72110

== ENCOUNTER → 2024-04-17 07:34 | Outpatient (CLI) | payer OTHER, SELFPAY ==
[2024-04-17 08:32] LABS: Add Manual Diff / Slide Review NO; Basophils Absolute Auto 0 /uL (0-100); Basophils Percent Auto 0.9 % (0-2); Eosinophils Absolute Auto 100 /uL (0-450); Eosinophils Percent Auto 2.4 % (2-4); Hematocrit 37.4 % (36-46); Hemoglobin 12.4 g/dL (12.0-16.0); Lymphocytes Absolute Auto 1000 /uL (1100-4500); Lymphocytes Percent Auto 18.7 % (25-40); Mean Corpuscular HGB Conc 33.2 % (30-36); Mean Corpuscular Hemoglobin 29.9 PG (26-34); Mean Corpuscular Volume 90.1 fL (80-100); Monocytes Absolute Auto 400 /uL (0-900); Monocytes Percent Auto 6.9 % (3-14); Neutrophils Absolute Auto 3700 /uL (1500-7000); Neutrophils Percent Auto 71.1 % (50-75); Platelet Count 249 X10^3/uL (150-400); Red Blood Cell Count 4.15 X10^6/uL (4.0-5.2); Red Cell Distribution Width 14.3 % (11.6-14.8); White Blood Cell Count 5.2 X10^3/uL (4.5-11.0)
[2024-04-17 08:52] LABS: Alanine Aminotransferase 22 IU/L (<35); Albumin 4.4 g/dL (3.5-5.0); Albumin Globulin Ratio 1.8 (1.0-2.8); Alkaline Phosphatase 68 U/L (38-126); Aspartate Aminotransferase 25 IU/L (14-36); BUN Creatinine Ratio 14.2 (6-22); Bilirubin Total 1.1 mg/dL (0.2-1.3); Blood Urea Nitrogen 15 mg/dL (7-17); Calcium 9.1 mg/dL (8.4-10.2); Carbon Dioxide 30 mmol/L (22-32); Chloride 102 mmol/L (98-107); Cholesterol 211 mg/dL (140-199); Estimated Glomerular Filt Rate > 60 mL/min (>60); Globulin 2.5 g/dL (1.7-4.1); Glucose 95 mg/dL (70-100); HDL Cholesterol 59 mg/dL (40-60); HEMOLYSIS < 15 (0-50); LDL Cholesterol Calculated 135 mg/dL (<100); Potassium 4.3 mmol/L (3.4-5.1); Sodium 138 mmol/L (137-145); Total Protein 6.9 g/dL (6.3-8.2); Triglycerides 83 mg/dL (35-150)
[2024-04-17 09:14] LABS: TSH w/ Reflex to FT4 3.55 uIU/mL (0.47-4.68)
== END ==
PROVIDERS: PCP Family Medicine; Referring Provider Family Medicine; Visit Provider Family Medicine
DX: M06.9 Rheumatoid arthritis, unspecified (principal); Z13.220 Encounter for screening for lipoid disorders; E03.9 Hypothyroidism, unspecified
CPT/HCPCS: 36415; 80053; 80061; 84443; 85025

== ENCOUNTER → 2024-04-30 07:40 | Outpatient (CLI) | payer OTHER, SELFPAY ==
--- NOTE | 2024-04-30 07:40 | DI.NM.S_ITS ---
PROCEDURE: NM HIDA WITH CCK PHARMACEUTICAL: 5.3 mCi Tc-99m mebrofenin IV; 2.0 mcg CCK IV. INDICATIONS: RUQ abdominal pain TECHNIQUE: Following intravenous administration of Tc-99m mebrofenin, sequential anterior abdominal images were obtained. To evaluate the contractile response of the gallbladder in response to Cholecystokinin (CCK), sincalide (0.02 ?g/kg) was administered by slow intravenous infusion approximately 60 minutes after the administration of the radiopharmaceutical. Sequential imaging was continued for 30 minutes after the start of CCK infusion. Gallbladder ejection fraction was calculated. COMPARISON: None. FINDINGS: Biliary scan: There is normal tracer uptake and excretion by the liver. There is normal visualization of the intrahepatic ducts, common bile duct, and gallbladder. There is normal tracer transit into the duodenum. CCK stimulation: There is normal contractile response of the gallbladder to CCK infusion. The calculated gallbladder ejection fraction is 87% ; normal values are above 35%. IMPRESSION: 1. Normal filling of gallbladder. No evidence for acute cholecystitis. 2. Normal contractile response of gallbladder to CCK stimulation. Dictated by: Sandrita Wood M.D. on 04/30/2024 at 9:55 Approved by: Sandrita Wood M.D. on 04/30/2024 at 9:57
== END ==
LOC: NUCM 07:40
PROVIDERS: PCP Family Medicine; Referring Provider Family Medicine; Visit Provider Family Medicine
DX: R10.9 Unspecified abdominal pain (principal)
CPT/HCPCS: 78227; A9537; J2805

== ENCOUNTER → 2024-05-21 09:15 | Outpatient (CLI) | payer OTHER, SELFPAY ==
[2024-05-21 11:05] LABS: Add Manual Diff / Slide Review NO; Basophils Absolute Auto 100 /uL (0-100); Eosinophils Absolute Auto 200 /uL (0-450); Eosinophils Percent Auto 3.3 % (2-4); Hematocrit 36.2 % (36-46); Hemoglobin 12.3 g/dL (12.0-16.0); Lymphocytes Absolute Auto 1100 /uL (1100-4500); Lymphocytes Percent Auto 16.7 % (25-40); Mean Corpuscular HGB Conc 33.9 % (30-36); Mean Corpuscular Hemoglobin 30.3 PG (26-34); Mean Corpuscular Volume 89.5 fL (80-100); Monocytes Absolute Auto 500 /uL (0-900); Monocytes Percent Auto 7.6 % (3-14); Neutrophils Absolute Auto 4500 /uL (1500-7000); Neutrophils Percent Auto 71.4 % (50-75); Platelet Count 255 X10^3/uL (150-400); Red Blood Cell Count 4.05 X10^6/uL (4.0-5.2); Red Cell Distribution Width 14.1 % (11.6-14.8); White Blood Cell Count 6.4 X10^3/uL (4.5-11.0)
[2024-05-21 12:39] LABS: Alanine Aminotransferase 21 IU/L (<35); Albumin Globulin Ratio 1.4 (1.0-2.8); Alkaline Phosphatase 68 U/L (38-126); Aspartate Aminotransferase 22 IU/L (14-36); Bilirubin Total 0.6 mg/dL (0.2-1.3); Bilirubin Unconjugated 0.2 mg/dL (0.0-1.1); Globulin 2.8 g/dL (1.7-4.1); HEMOLYSIS < 15 (0-50); Total Protein 6.8 g/dL (6.3-8.2)
[2024-05-21 12:39] LABS: BUN Creatinine Ratio 9.9 (6-22); Blood Urea Nitrogen 14 mg/dL (7-17); Calcium 9.3 mg/dL (8.4-10.2); Carbon Dioxide 27 mmol/L (22-32); Chloride 106 mmol/L (98-107); Estimated Glomerular Filt Rate 45 mL/min (>60); Glucose 71 mg/dL (70-100); HEMOLYSIS < 15 (0-50); Potassium 4.6 mmol/L (3.4-5.1); Sodium 139 mmol/L (137-145)
== END ==
PROVIDERS: PCP Family Medicine; Referring Provider Internal Medicine Gastroenterology; Visit Provider Internal Medicine Gastroenterology
DX: K75.4 Autoimmune hepatitis (principal); N28.9 Disorder of kidney and ureter, unspecified
CPT/HCPCS: 36415; 80048; 80076; 85025; 99212

== ENCOUNTER 2024-05-27 11:15 | Emergency (ER) | payer OTHER, SELFPAY ==
[2024-05-27] VITALS (10 sets, daily range): BP systolic 116–138; BP diastolic 68–83; PULSE 58–67; RESP 18; TEMP 36.7; O2SAT 95–100; BMI 35.5
--- NOTE | 2024-05-27 11:51 | EKG_ITS ---
[address] [address] Test Date: 2024-05-27 Pat Name: Ember Medellin Department: [facility] Room: Gender: Female Reagent Tender: CARLYN : 1970 Requested By: Order Number: [id number] Reading MD: Nikita Zaldivar Measurements Intervals [place] Rate: 58 P: 49 NC: 160 QRS: 6 QRSD: 88 T: 23 QT: 430 QTc: 422 Interpretive Statements Sinus bradycardia Electronically Signed On 05-28-2024 18:25:58 PDT by Nikita Zaldivar
[2024-05-27 11:53] LABS: Add Manual Diff / Slide Review NO; Basophils Absolute Auto 100 /uL (0-100); Eosinophils Absolute Auto 200 /uL (0-450); Eosinophils Percent Auto 2.3 % (2-4); Hematocrit 37.3 % (36-46); Hemoglobin 12.5 g/dL (12.0-16.0); Lymphocytes Absolute Auto 1200 /uL (1100-4500); Lymphocytes Percent Auto 18.1 % (25-40); Mean Corpuscular HGB Conc 33.5 % (30-36); Mean Corpuscular Hemoglobin 30.2 PG (26-34); Mean Corpuscular Volume 90.1 fL (80-100); Monocytes Absolute Auto 400 /uL (0-900); Monocytes Percent Auto 6.6 % (3-14); Neutrophils Absolute Auto 4900 /uL (1500-7000); Platelet Count 248 X10^3/uL (150-400); Red Blood Cell Count 4.14 X10^6/uL (4.0-5.2); Red Cell Distribution Width 14.5 % (11.6-14.8); White Blood Cell Count 6.7 X10^3/uL (4.5-11.0)
[2024-05-27 12:05] LABS: Alanine Aminotransferase 23 IU/L (<35); Albumin 4.4 g/dL (3.5-5.0); Albumin Globulin Ratio 1.5 (1.0-2.8); Alkaline Phosphatase 67 U/L (38-126); Aspartate Aminotransferase 25 IU/L (14-36); BUN Creatinine Ratio 12.7 (6-22); Blood Urea Nitrogen 13 mg/dL (7-17); Calcium 9.3 mg/dL (8.4-10.2); Carbon Dioxide 27 mmol/L (22-32); Chloride 104 mmol/L (98-107); Estimated Glomerular Filt Rate > 60 mL/min (>60); Glucose 92 mg/dL (70-100); HEMOLYSIS < 15 (0-50); Lipase 109 U/L (23-300); Sodium 137 mmol/L (137-145); Total Protein 7.4 g/dL (6.3-8.2)
--- NOTE | 2024-05-27 13:11 | ED.GENADULT ---
HPI - General Adult General Chief complaint: Abdominal Pain Stated complaint: r side abd pain, sent by [facility] Time Seen by Provider: 05/27/24 12:35 History of Present Illness HPI narrative: 54-year-old woman with a history of hypothyroidism, reflux who presents with severe right lower quadrant pain starting at 4:00 a.m.. She does note that she has a history of chronic pyelonephritis with ureteral valve problems and reimplantation she would when she was a child. She was swimming and felt a pull in her right flank area it continued to worsen was worsening as she was stepping up and out of the pool. She currently has a autoimmune hepatitis that she believes is secondary to using topical diclofenac. She is allergic to aspirin tries to avoid Tylenol declines any additional pain medication at this time. 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 She has never had pain similar to be flank pain she is currently experiencing. No vomiting, diarrhea, chest pain or palpitations at this time Related Data Home Medications Medication Instructions Recorded Confirmed IBreeze 07/07/22 05/21/24 azathioprine 100 mg tablet 75 mg PO DAILY 03/21/24 05/21/24 Previous Rx's Medication Instructions Recorded bupropion HCl 75 mg tablet See Rx Instructions .Route 12/04/23 .COMPLEX #180 tabs pantoprazole 40 mg tablet,delayed 40 mg PO DAILY #90 tabs 03/15/24 release levothyroxine 88 mcg tablet 88 mcg PO DAILY #90 tabs 03/25/24 (Synthroid) Allergies Allergy/AdvReac Type Severity Reaction Status Date / Time fluconazole [From Diflucan] Allergy Verified 05/21/24 09:59 ibuprofen Allergy Verified 05/21/24 09:59 NSAIDS (Non-Steroidal AdvReac Unknown Verified 05/21/24 09:59 Anti-Inflamma Review of Systems Review of Systems Narrative: Pertinent positive and negative findings as per HPI Patient History Medical History Lumbar spondylosis Low back pain Depression Anxiety Drug-induced hepatitis (~09/2019) Sliding hiatal hernia (~2010) Anemia Kidney disease Hypothyroidism (~1996) Recurrent UTI Autoimmune hepatitis (~2019) Surgical History History of Anesthesia History of hand surgery (~2016) History of partial hysterectomy (~2010) Ulnar nerve damage (~2006) [place] teeth removed (~2006) History of tubal ligation (~1996) Pilonidal cyst (~1990) S/P ureteral reimplantation Social History Smoking Status: Former smoker Smoking Status: Former smoker alcohol intake frequency: holidays/special occasions only Substance Use Type: does not use Exam Initial Vital Signs Initial Vital Signs: Vital Signs Temperature 98.0 F 05/27/24 11:33 Pulse Rate 58 L 05/27/24 11:33 Respiratory Rate 18 05/27/24 11:33 Blood Pressure 138/83 05/27/24 11:33 Pulse Oximetry 98 05/27/24 11:33 Oxygen Delivery Method Room Air 05/27/24 11:33 General: Healthy appearing, in no acute distress. Able to give a complete and coherent history. Well-nourished well-developed HEENT: Moist mucous membranes, normal sclera with reactive pupils, Respiratory: Lungs are clear to auscultation, no wheezing no rales no rhonchi. Full and symmetrical air movement Cardiac: Regular rate and rhythm no murmurs no bruits Abdomen: Soft, tenderness in the right flank without rebound or guarding. No pelvic pain Skin: Warm and dry, no rashes Neurologic: Grossly neurologically intact with no obvious asymmetries or abnormalities Extremities: No trauma, well perfused Psych: Cooperative, appropriate insight and affect Course Orders Ordered: ED Orders 05/27/24 11:37 EKG-12 Lead Stat 05/27/24 11:40 Complete Blood Count AUTO DIFF Stat Comprehensive Metabolic Panel Stat Lipase Stat 05/27/24 13:22 CT kidney ureter bladder (KUB) Stat Ondansetron HCl (Ondansetron 4 Mg/2 Ml Inj) 4 mg IV NOW PRN PRN Reason: Nausea And Vomiting Ondansetron HCl (Ondansetron 4 Mg Odt) 4 mg PO NOW PRN PRN Reason: Nausea And Vomiting Vital Signs Vital signs: Vital Signs - 8 hr 05/27/24 11:33 05/27/24 12:09 05/27/24 12:10 Temperature 98.0 F Pulse Rate 58 L 60 Respiratory Rate 18 Blood Pressure 138/83 Pulse Oximetry 98 100 97 Oxygen Delivery Method Room Air 05/27/24 12:10 05/27/24 12:30 05/27/24 12:30 Temperature Pulse Rate 59 L Respiratory Rate Blood Pressure 119/68 116/75 Pulse Oximetry 98 Oxygen Delivery Method 05/27/24 13:00 05/27/24 13:00 05/27/24 13:37 Temperature Pulse Rate 58 L 58 L Respiratory Rate Blood Pressure 121/72 Pulse Oximetry 98 97 Oxygen Delivery Method 05/27/24 14:00 05/27/24 14:30 05/27/24 15:00 Temperature Pulse Rate 60 60 59 L Respiratory Rate Blood Pressure Pulse Oximetry 98 99 98 Oxygen Delivery Method 05/27/24 15:30 Temperature Pulse Rate 67 Respiratory Rate Blood Pressure Pulse Oximetry 95 Oxygen Delivery Method Medical Decision Making Lab Data 05/27/24 11:40 05/27/24 11:40 Labs: Lab Results 05/27/24 Range/Units 11:40 WBC 6.7 (4.5-11.0) X10^3/uL RBC 4.14 (4.0-5.2) X10^6/uL Hgb 12.5 (12.0-16.0) g/dL Hct 37.3 (36-46) % MCV 90.1 (80-100) fL MCH 30.2 (26-34) PG MCHC 33.5 (30-36) % RDW 14.5 (11.6-14.8) % Plt Count 248 (150-400) X10^3/uL Neut % (Auto) 72.0 (50-75) % Lymph % (Auto) 18.1 L (25-40) % [place] % (Auto) 6.6 (3-14) % Eos % (Auto) 2.3 (2-4) % Baso % (Auto) 1.0 (0-2) % Neut # (Auto) 4900 (1574-1448) /uL Lymph # (Auto) 1200 (5089-0476) /uL [place] # (Auto) 400 (0-900) /uL Eos # (Auto) 200 (0-450) /uL Baso # (Auto) 100 (0-100) /uL Sodium 137 (137-145) mmol/L Potassium 4.0 (3.4-5.1) mmol/L Chloride 104 (98-107) mmol/L Carbon Dioxide 27 (22-32) mmol/L BUN 13 (7-17) mg/dL Creatinine 1.02 (0.52-1.04) mg/dL Estimated GFR > 60 (>60) mL/min BUN/Creatinine Ratio 12.7 (6-22) Glucose 92 (70-100) mg/dL Calcium 9.3 (8.4-10.2) mg/dL Total Bilirubin 1.0 (0.2-1.3) mg/dL AST 25 (14-36) IU/L ALT 23 (<35) IU/L Alkaline Phosphatase 67 (38-126) U/L Total Protein 7.4 (6.3-8.2) g/dL Albumin 4.4 (3.5-5.0) g/dL Globulin 3.0 (1.7-4.1) g/dL Albumin/Globulin Ratio 1.5 (1.0-2.8) Lipase 109 (23-300) U/L Urine Dip Bedside Urine Glucose Negative Bedside Urine Bilirubin - Negative Bedside Urine Ketone - Negative Urine Specific [place] 1.000 Bedside Urine Occult Blood - Negative Bedside Urine pH 6.0 Bedside Urine Protein - Negative Bedside Urine Urobilinogen - Negative Bedside Urine Nitrite - Negative Bedside Urine Leukocytes - Negative Esterase Point of care testing: Urine Dip Bedside Urine Glucose Negative Bedside Urine Bilirubin - Negative Bedside Urine Ketone - Negative Urine Specific [place] 1.000 Bedside Urine Occult Blood - Negative Bedside Urine pH 6.0 Bedside Urine Protein - Negative Bedside Urine Urobilinogen - Negative Bedside Urine Nitrite - Negative Bedside Urine Leukocytes - Negative Esterase Imaging Data CT scan - abdomen/pelvis: Radiologist's Impression: PROCEDURE: CT KIDNEY URETER BLADDER (KUB) INDICATIONS: flank pain, ? kidney stone TECHNIQUE: Axial sections were acquired from the lung bases to the pubic symphysis. Coronal and sagittal reformats were performed. For radiation dose reduction, the following was used: automated exposure control, adjustment of mA and/or kV according to patient size. COMPARISON: [facility], CT, CT ABDOMEN PANCREATIC PROTOCOL, 01/26/2022, 9:10. FINDINGS: Image quality: Diagnostic. Lower Chest: No significant findings. URINARY: Right Kidney: No stones or hydronephrosis. Right Ureter: No hydroureter. Left Kidney: No stones or hydronephrosis. Stable appearance of anterior cyst. Left Ureter: No hydroureter. Bladder: Normal wall thickness. No stones. ABDOMEN: Liver: No contour-deforming solid mass. Gallbladder: No radiopaque gallstones or wall thickening. Biliary ducts: No biliary dilation. Pancreas: No ductal dilation. Spleen: Size is within normal limits. Adrenal Glands: No adrenal nodules. Stomach and Bowel: Normal colonic caliber, without significant wall thickening. Mild hiatal hernia. Appendix is normal. Peritoneum: No abnormal intraperitoneal fluid. No free air. Ventral Wall: No hernia. Abdominal Nodes: No enlarged retroperitoneal or mesenteric lymph nodes. Vessels: Aorta and inferior vena cava are normal in size. PELVIS: Pelvic Organs: Unremarkable. Pelvic Nodes: Unremarkable. Miscellaneous: No inguinal hernias are seen. Bones: Unremarkable. IMPRESSION: No obstructing stones or hydronephrosis. No acute intra-abdominal or pelvic process. Dictated by: Mackenzie Lobato M.D. on 05/27/2024 at 14:33 MDM Narrative Medical decision making narrative: CC: Acute onset right flank Complicating co-morbidities: Prior history of pyelonephritis Data collected from: patient Social determinants of health that may influence the patients condition: History of ureteral abnormalities as a child Medical records reviewed: Recent and imaging studies are reviewed Differential considered: Kidney stone, pyelonephritis, constipation, appendicitis, gallstone Exam documented above, pertinent findings include: 54-year-old woman alert and appropriate, describes her pain is 3/10 currently. Right flank pain in the upper portion of the flank radiating into the right lower quadrant without reproducible pain with palpation Lab Test results independently reviewed as above. Pertinent findings: Hematology is unremarkable with no leukocytosis Chemistries are reassuring Lipase is unremarkable Urine shows a minor amount of blood that no infection Imaging studies independently reviewed: CT scan is benign, no obvious source for infection Discussion: 54-year-old woman with right-sided pain radiating into the flank in the right lower quadrant. CT scan does not suggest constipation, kidney stone, pyelonephritis. There was no appendicitis, no significant constipation, labs are reassuring and I do not have a complete explanation for her pain. We did review the possibility of a zoster prodrome causing the pain, she has had a shingles shot to hopefully prevent this. She is declined any pain medications at this point and feels comfortable with discharge home. Questions are answered. Discharge Plan Departure Patient Disposition: Home Clinical Impression: Abdominal pain Qualifiers: Abdominal location: right lower quadrant Qualified Code(s): R10.31 - Right lower quadrant pain Instructions: DI for Abdominal Pain-Adult Activity Restrictions/Additional Instructions: Thank you for coming in today Your blood work was reassuring. Your creatinine was back down to 1.0 with your estimated GFR greater than 60. Your liver studies were all appropriate. There was no evidence of infection or significant anemia Because of the location of your pain, more your right side and your right flank than your right lower quadrant, I consider the possibility of a kidney stone. The CT scan that we did of your belly does not show any obvious findings to explain your pain. Specifically there are no kidney stones, your kidney itself looks healthy, the gallbladder looks normal, you do not have an excessive amount of stool, there was no bowel obstruction and no sign of appendicitis. We briefly discussed pain control options. I very much respect wanting to stay away from narcotics and understand the medical need to avoid Tylenol and ibuprofen. If you do want to consider some alternative topical treatments that are not going to have side effects (aside from the cost) you might consider looking up Kailo or [employer] Relief pain patches. These use a novel way to try to disrupt pain signals back to your brain so that the area of concern isn't hurting as much. If you find that you are getting worse or develop any new symptoms, please feel free to return to the emergency department for further evaluation. Prescriptions: No Action azathioprine 100 mg tablet 75 mg PO DAILY bupropion HCl 75 mg tablet See Rx Instructions .ROUTE .COMPLEX Qty: 180 3RF Dose Instruction: TAKE 1 TABLET DAILY FOR 2 WEEKS, IF NO NEGATIVE EFFECTS, INCREASE TO 2 TABLETS DAILY THEREAFTER Rx Instructions: TAKE 1 TABLET DAILY FOR 2 WEEKS, IF NO NEGATIVE EFFECTS, INCREASE TO 2 TABLETS DAILY THEREAFTER pantoprazole 40 mg tablet,delayed release (DR/EC) 40 mg PO DAILY Qty: 90 1RF Hold Instructions: Home Medication placed on hold at Doctor's office levothyroxine [Synthroid] 88 mcg tablet 88 mcg PO DAILY Qty: 90 3RF (DME) IBreeze See Rx Instructions .Route .MEDSUPPLY Rx Instructions: CPAP Min: 5 Max: 15 DME: [employer] RAJENDRA: 11/04/21 Referrals: Gogo Pedro MD [Primary Care Provider] - Stand Alone Forms: Patient Portal/API
--- NOTE | 2024-05-27 13:22 | DI.CT.S_ITS ---
PROCEDURE: CT KIDNEY URETER BLADDER (KUB) INDICATIONS: flank pain, ? kidney stone TECHNIQUE: Axial sections were acquired from the lung bases to the pubic symphysis. Coronal and sagittal reformats were performed. For radiation dose reduction, the following was used: automated exposure control, adjustment of mA and/or kV according to patient size. COMPARISON: [facility], CT, CT ABDOMEN PANCREATIC PROTOCOL, 01/26/2022, 9:10. FINDINGS: Image quality: Diagnostic. Lower Chest: No significant findings. URINARY: Right Kidney: No stones or hydronephrosis. Right Ureter: No hydroureter. Left Kidney: No stones or hydronephrosis. Stable appearance of anterior cyst. Left Ureter: No hydroureter. Bladder: Normal wall thickness. No stones. ABDOMEN: Liver: No contour-deforming solid mass. Gallbladder: No radiopaque gallstones or wall thickening. Biliary ducts: No biliary dilation. Pancreas: No ductal dilation. Spleen: Size is within normal limits. Adrenal Glands: No adrenal nodules. Stomach and Bowel: Normal colonic caliber, without significant wall thickening. Mild hiatal hernia. Appendix is normal. Peritoneum: No abnormal intraperitoneal fluid. No free air. Ventral Wall: No hernia. Abdominal Nodes: No enlarged retroperitoneal or mesenteric lymph nodes. Vessels: Aorta and inferior vena cava are normal in size. PELVIS: Pelvic Organs: Unremarkable. Pelvic Nodes: Unremarkable. Miscellaneous: No inguinal hernias are seen. Bones: Unremarkable. IMPRESSION: No obstructing stones or hydronephrosis. No acute intra-abdominal or pelvic process. Dictated by: Mackenzie Lobato M.D. on 05/27/2024 at 14:33 Approved by: Mackenzie Lobato M.D. on 05/27/2024 at 14:35
== END 2024-05-27 16:18 | disposition home or self-care (01) ==
PROVIDERS: Emergency Provider Emergency Medicine; PCP Family Medicine
DX: R10.31 Right lower quadrant pain (principal)
CPT/HCPCS: 74176; 80053; 81003; 83690; 85025; 93005; 99282; 99284

== ENCOUNTER 2024-05-29 07:40 | Emergency (ER) | payer OTHER, SELFPAY ==
[2024-05-29 07:45] VITALS: BP 128/81; PULSE 77; RESP 18; TEMP 36.7; O2SAT 96; BMI 35.5
[2024-05-29 07:46] VITALS: BP 128/81; PULSE 82; O2SAT 96
--- NOTE | 2024-05-29 07:55 | PC.NURSE ---
Pt states heard her cat fall off of a treadmill and patient whipped around quickly, bending over to pickup the cat. Pt has had worsening back pain and was seen here monday for same.
--- NOTE | 2024-05-29 08:01 | ED.BACK ---
HPI - Back Pain/Injury General Chief Complaint: Back Pain/Injury Stated Complaint: back pain Time Seen by Provider: 05/29/24 07:45 Source: patient Mode of arrival: Ambulatory Limitations: no limitations History of Present Illness HPI Narrative: Patient is a old female who is here for evaluation bilateral lower back discomfort. She was seen here in the emergency department 2 days ago for right-sided flank discomfort. Had an extensive workup to include labs and a CT scan without an acute pathology identified. She states that the discomfort that she comes with today is different. She has low back pain in the past. She does see a pain management/physical medicine provider who has talked with her about injections. She was not take pain medication. Does not take ibuprofen. Has issues with her liver so can not take Tylenol. She stated that yesterday she had a twisting motion and now has bilateral lower back discomfort. No radiation down into her legs. Denies any fevers. Denies any urinary symptoms. Related Data Home Medications Medication Instructions Recorded Confirmed IBreeze 07/07/22 05/21/24 azathioprine 100 mg tablet 75 mg PO DAILY 03/21/24 05/21/24 Previous Rx's Medication Instructions Recorded bupropion HCl 75 mg tablet See Rx Instructions .Route 12/04/23 .COMPLEX #180 tabs pantoprazole 40 mg tablet,delayed 40 mg PO DAILY #90 tabs 03/15/24 release levothyroxine 88 mcg tablet 88 mcg PO DAILY #90 tabs 03/25/24 (Synthroid) Allergies Allergy/AdvReac Type Severity Reaction Status Date / Time fluconazole [From Diflucan] Allergy Verified 05/29/24 07:52 ibuprofen Allergy Verified 05/29/24 07:52 NSAIDS (Non-Steroidal AdvReac Unknown Verified 05/29/24 07:52 Anti-Inflamma Review of Systems Constitutional Constitutional: Reports system reviewed and no additional complaints, except as documented Genitourinary Genitourinary: Reports system reviewed and no additional complaints, except as documented Musculoskeletal Musculoskeletal: Reports system reviewed and no additional complaints, except as documented Integumentary/Breasts Skin/Breast: Reports system reviewed and no additional complaints, except as documented Patient History Medical History Lumbar spondylosis Low back pain Depression Anxiety Drug-induced hepatitis (~09/2019) Sliding hiatal hernia (~2010) Anemia Kidney disease Hypothyroidism (~1996) Recurrent UTI Autoimmune hepatitis (~2019) Surgical History History of Anesthesia History of hand surgery (~2016) History of partial hysterectomy (~2010) Ulnar nerve damage (~2006) [place] teeth removed (~2006) History of tubal ligation (~1996) Pilonidal cyst (~1990) S/P ureteral reimplantation Social History Smoking Status: Former smoker Smoking Status: Former smoker alcohol intake frequency: holidays/special occasions only Substance Use Type: does not use Exam Initial Vital Signs Initial Vital Signs: Vital Signs Temperature 98.0 F 05/29/24 07:45 Pulse Rate 77 05/29/24 07:45 Respiratory Rate 18 05/29/24 07:45 Blood Pressure 128/81 05/29/24 07:45 Pulse Oximetry 96 05/29/24 07:45 Oxygen Delivery Method Room Air 05/29/24 07:45 Const General: cooperative, comfortable and No ill appearing Resp Effort & Inspection: normal respiratory effort Cardio Rate: regular rate Back/Spine/Pelvis Other: No discomfort with palpation of the lumbar spine or the paraspinal region. Extrem Other: No gross deformities Course Vital Signs Vital signs: Vital Signs - 8 hr 05/29/24 07:45 Temperature 98.0 F Pulse Rate 77 Respiratory Rate 18 Blood Pressure 128/81 Pulse Oximetry 96 Oxygen Delivery Method Room Air MDM - Back Pain/Injury MDM Narrative Medical decision making narrative: Her discomfort comes with movement specifically was sitting and bending over. It was bilateral lower spine. I have a very strong suspicion that this is muscular in origin. She had a CT scan done 2 days ago that showed no acute intra-abdominal issues. She has not had any trauma since then. Has not fallen. There is no indication for another CT scan. She was not having any urinary symptoms. I do not feel that we need to repeat any lab work. No skin changes. She potentially would need further workup to include an MRI but this can come by either her physical medicine rehab provider or her primary doctor. Offered x-rays here in the ER but we will hold on that for now. I do not feel this is unreasonable save a very low suspicion that there is bony injury. She states she was allergic to ibuprofen. Can not take Tylenol. Will not take steroids because of issues that she was had in the past with him. States she does not want pain medication. We discussed other conservative measures to include heat/ice. She can try topical lidocaine from [id number]. Will have her follow-up as an outpatient. Discharge Plan Departure Patient Disposition: Home Clinical Impression: Low back pain Instructions: DI for Low Back Pain Activity Restrictions/Additional Instructions: Continue to take all of your medications as directed. I do recommend that you follow-up with the spine provider that you were seeing to see whether or not they feel that you need more advanced imaging such as an MRI. Contact your primary doctor for a follow-up. Prescriptions: No Action azathioprine 100 mg tablet 75 mg PO DAILY bupropion HCl 75 mg tablet See Rx Instructions .ROUTE .COMPLEX Qty: 180 3RF Dose Instruction: TAKE 1 TABLET DAILY FOR 2 WEEKS, IF NO NEGATIVE EFFECTS, INCREASE TO 2 TABLETS DAILY THEREAFTER Rx Instructions: TAKE 1 TABLET DAILY FOR 2 WEEKS, IF NO NEGATIVE EFFECTS, INCREASE TO 2 TABLETS DAILY THEREAFTER pantoprazole 40 mg tablet,delayed release (DR/EC) 40 mg PO DAILY Qty: 90 1RF Hold Instructions: Home Medication placed on hold at Doctor's office levothyroxine [Synthroid] 88 mcg tablet 88 mcg PO DAILY Qty: 90 3RF (DME) Zhaneze See Rx Instructions .Route .MEDSUPPLY Rx Instructions: CPAP Min: 5 Max: 15 DME: [employer] RAJENDRA: 11/04/21 Referrals: Gogo Pedro MD [Primary Care Provider] - Stand Alone Forms: Patient Portal/API
== END 2024-05-29 08:10 | disposition home or self-care (01) ==
PROVIDERS: Emergency Provider Emergency Medicine; PCP Family Medicine
DX: M54.50 Low back pain, unspecified (principal)
CPT/HCPCS: 99281; 99283

== ENCOUNTER → 2024-06-03 12:07 | Outpatient (CLI) | payer OTHER, SELFPAY ==
--- NOTE | 2024-06-03 12:08 | DI.RAD.S_ITS ---
PROCEDURE: XR LUMBAR SPINE MIN 4V INDICATIONS: BACK PAIN TECHNIQUE: 5 views of the lumbar spine were acquired, including bilateral oblique views. COMPARISON: [facility], , XR LUMBAR SPINE MIN 4V, 04/11/2024, 7:41. FINDINGS: Bones: 5 nonrib-bearing vertebrae are present. There is normal bony alignment. No vertebral body compression fractures. No suspicious bony lesions. Multilevel disc space narrowing and degenerative endplate changes. Multilevel facet hypertrophy. Soft tissues: Overlying bowel gas pattern is normal. No suspicious soft tissue calcifications. Oblique images: No pars defects. IMPRESSION: Multilevel spondylosis. No acute osseous abnormality. If symptoms persist or if there is continued clinical concern, cross-sectional imaging such as MRI or CT may be helpful for further evaluation. Approved by: Santi Jordan M.D. on 06/03/2024 at 13:22
== END ==
PROVIDERS: PCP Family Medicine; Referring Provider Anesthesiology; Visit Provider Anesthesiology
DX: M47.816 Spondylosis without myelopathy or radiculopathy, lumbar region (principal); M54.50 Low back pain, unspecified
CPT/HCPCS: 72110

== ENCOUNTER → 2024-08-21 09:11 | Outpatient (CLI) | payer OTHER, SELFPAY ==
[2024-08-21 10:08] LABS: Add Manual Diff / Slide Review NO; Basophils Absolute Auto 100 /uL (0-100); Basophils Percent Auto 0.8 % (0-2); Eosinophils Absolute Auto 100 /uL (0-450); Eosinophils Percent Auto 2.4 % (2-4); Hematocrit 37.8 % (36-46); Hemoglobin 12.8 g/dL (12.0-16.0); Lymphocytes Absolute Auto 1100 /uL (1100-4500); Lymphocytes Percent Auto 18.7 % (25-40); Mean Corpuscular HGB Conc 33.9 % (30-36); Mean Corpuscular Hemoglobin 30.5 PG (26-34); Mean Corpuscular Volume 89.9 fL (80-100); Monocytes Absolute Auto 400 /uL (0-900); Monocytes Percent Auto 6.9 % (3-14); Neutrophils Absolute Auto 4300 /uL (1500-7000); Neutrophils Percent Auto 71.2 % (50-75); Platelet Count 249 X10^3/uL (150-400); Red Blood Cell Count 4.21 X10^6/uL (4.0-5.2); Red Cell Distribution Width 13.5 % (11.6-14.8)
[2024-08-21 10:52] LABS: Alanine Aminotransferase 21 IU/L (<35); Albumin 4.1 g/dL (3.5-5.0); Albumin Globulin Ratio 1.5 (1.0-2.8); Alkaline Phosphatase 58 U/L (38-126); Aspartate Aminotransferase 25 IU/L (14-36); Bilirubin Total 1.2 mg/dL (0.2-1.3); Bilirubin Unconjugated 1.1 mg/dL (0.0-1.1); Globulin 2.8 g/dL (1.7-4.1); HEMOLYSIS < 15 (0-50); Total Protein 6.9 g/dL (6.3-8.2)
== END ==
PROVIDERS: PCP Family Medicine; Referring Provider Internal Medicine Gastroenterology; Visit Provider Internal Medicine Gastroenterology
DX: K75.4 Autoimmune hepatitis (principal)
CPT/HCPCS: 36415; 80076; 85025

== ENCOUNTER → 2024-12-27 08:29 | Outpatient (CLI) | payer OTHER, SELFPAY ==
[2024-12-27 08:58] LABS: Add Manual Diff / Slide Review NO; Basophils Absolute Auto 100 /uL (0-100); Basophils Percent Auto 1.1 % (0-2); Eosinophils Absolute Auto 200 /uL (0-450); Hematocrit 38.6 % (36-46); Hemoglobin 13.1 g/dL (12.0-16.0); Lymphocytes Absolute Auto 1200 /uL (1100-4500); Lymphocytes Percent Auto 20.7 % (25-40); Mean Corpuscular HGB Conc 33.8 % (30-36); Mean Corpuscular Hemoglobin 30.8 PG (26-34); Mean Corpuscular Volume 91.2 fL (80-100); Monocytes Absolute Auto 400 /uL (0-900); Monocytes Percent Auto 6.3 % (3-14); Neutrophils Absolute Auto 4100 /uL (1500-7000); Neutrophils Percent Auto 68.9 % (50-75); Platelet Count 281 X10^3/uL (150-400); Red Blood Cell Count 4.24 X10^6/uL (4.0-5.2); Red Cell Distribution Width 13.4 % (11.6-14.8)
[2024-12-27 09:12] LABS: Alanine Aminotransferase 28 IU/L (<35); Albumin 4.4 g/dL (3.5-5.0); Albumin Globulin Ratio 1.8 (1.0-2.8); Alkaline Phosphatase 52 U/L (38-126); Aspartate Aminotransferase 27 IU/L (14-36); Bilirubin Total 0.7 mg/dL (0.2-1.3); Bilirubin Unconjugated 0.4 mg/dL (0.0-1.1); Globulin 2.5 g/dL (1.7-4.1); HEMOLYSIS < 15 (0-50); Total Protein 6.9 g/dL (6.3-8.2)
== END ==
LOC: LAB 08:32
PROVIDERS: PCP Family Medicine; Referring Provider Internal Medicine Gastroenterology; Visit Provider Internal Medicine Gastroenterology
DX: K75.4 Autoimmune hepatitis (principal)
CPT/HCPCS: 36415; 80076; 85025

== ENCOUNTER → 2025-02-07 08:39 | Outpatient (CLI) | payer OTHER, SELFPAY ==
[2025-02-07 09:29] LABS: Influenza A - CEPHEID Flu A NEGATIVE (NEGATIVE); Influenza B - CEPHEID Flu B NEGATIVE (NEGATIVE); Respiratory Syncytial Virus Negative (Negative)
[2025-02-07 10:12] LABS: COVID-19 CEPHEID 4-PLEX PCR Negative (Negative)
== END ==
PROVIDERS: PCP Family Medicine; Visit Provider Physician Assistant Medical
DX: R05.1 Acute cough (principal)
CPT/HCPCS: 0241U

== ENCOUNTER 2025-02-16 07:08 | Emergency (ER) | payer OTHER, SELFPAY ==
[2025-02-16 07:26] VITALS: BP 115/73; PULSE 67; RESP 16; TEMP 36.6; O2SAT 97; BMI 37.1
--- NOTE | 2025-02-16 07:29 | ED.GENADULT ---
HPI - General Adult General Chief complaint: Upper Respiratory Symptoms Stated complaint: Day 15 of being sick, cold symptoms Time Seen by Provider: 02/16/25 07:14 History of Present Illness HPI narrative: 55-year-old female awaiting lumpectomy breast surgery scheduled tomorrow, now with 15 days upper respiratory infection symptoms, initial cough that seems to be decreased but increasing sinus congestion and sinus discomfort, concern for possible sinusitis. No photophobia. No meningismus, moves neck well. Denies chest pain or shortness of breath. Concerned that she might not be able to have her surgery tomorrow on Monday. We would like testing. Related Data Home Medications Medication Instructions Recorded Confirmed IBreeze 07/07/22 01/06/25 azathioprine 100 mg tablet 75 mg PO DAILY 03/21/24 01/06/25 famotidine 20 mg tablet mg PO DAILY 02/07/25 02/07/25 Previous Rx's Medication Instructions Recorded bupropion HCl 75 mg tablet See Rx Instructions .Route 12/04/23 .COMPLEX #180 tabs pantoprazole 40 mg tablet,delayed 40 mg PO DAILY #90 tabs 03/15/24 release levothyroxine 88 mcg tablet 88 mcg PO DAILY #90 tabs 03/25/24 (Synthroid) amoxicillin 875 mg-potassium 1 tab PO BID #20 tabs 02/16/25 clavulanate 125 mg tablet Allergies Allergy/AdvReac Type Severity Reaction Status Date / Time fluconazole [From Diflucan] Allergy Verified 02/16/25 07:26 ibuprofen Allergy Verified 02/16/25 07:26 NSAIDS (Non-Steroidal AdvReac Unknown Verified 02/16/25 07:26 Anti-Inflamma Patient History Medical History Lumbar spondylosis Low back pain Depression Anxiety Drug-induced hepatitis (~09/2019) Sliding hiatal hernia (~2010) Anemia Kidney disease Hypothyroidism (~1996) Recurrent UTI Autoimmune hepatitis (~2019) Surgical History History of Anesthesia History of hand surgery (~2016) History of partial hysterectomy (~2010) Ulnar nerve damage (~2006) [place] teeth removed (~2006) History of tubal ligation (~1996) Pilonidal cyst (~1990) S/P ureteral reimplantation Social History Smoking Status: Former smoker Smoking Status: Former smoker alcohol intake frequency: holidays/special occasions only Exam Narrative Exam Narrative: GENERAL: Well-developed patient, in mild distress. HEAD: Atraumatic. Normocephalic. EYES: Pupils equal round and reactive. Extraocular motions intact. No scleral icterus. No injection or drainage. ENT: Nose without bleeding, purulent drainage. Throat without erythema, tonsillar hypertrophy or exudate. Airway patent. Nasal mucosa with some erythema, some purulent fluid nasal floor visible anterior space. NECK: Trachea midline. Non tender CARDIOVASCULAR: Regular rate and rhythm without murmurs, gallops, or rubs. RESPIRATORY: Clear to auscultation. Breath sounds equal bilaterally. No wheezes, rales, or rhonchi. GASTROINTESTINAL: Abdomen soft, non-tender, nondistended. EXTREMITIES: No edema or joint tenderness. BACK: Nontender without deformity or crepitance. No flank tenderness. NEURO: AOx3. Motor functions grossly nonfocal SKIN: No rash or erythema of visible areas Initial Vital Signs Initial Vital Signs: Vital Signs Temperature 97.9 F 02/16/25 07:26 Pulse Rate 67 02/16/25 07:26 Respiratory Rate 16 02/16/25 07:26 Blood Pressure 115/73 02/16/25 07:26 Pulse Oximetry 97 02/16/25 07:26 Oxygen Delivery Method Room Air 02/16/25 07:26 Course Orders Ordered: Discontinued Medications Amoxicillin/Clavulanate Potassium (Amoxicillin/Clav 875/125 Mg) 1 tab PO NOW ONE Stop: 02/16/25 07:56 Last Admin: 02/16/25 08:04 Dose: 1 tab Documented By: WAYNE Vital Signs Vital signs: Vital Signs - 8 hr 02/16/25 07:26 Temperature 97.9 F Pulse Rate 67 Respiratory Rate 16 Blood Pressure 115/73 Pulse Oximetry 97 Oxygen Delivery Method Room Air Medical Decision Making Lab Data Labs: Lab Results 02/16/25 Range/Units 07:41 Chlamy pneumoniae PCR Not detected (Not Detect) Adenovirus (PCR) Not detected (Not Detect) B. pertussis DNA (PCR) Not detected (Not Detect) B.parapertussis DNA PCR Not detected (Not Detecte) Coronavirus OC43 (PCR) Not detected (Not Detect) Coronavirus HKU1 (PCR) Not detected (Not Detect) Coronavirus 229E (PCR) Not detected (Not Detect) SARS-CoV-2 (PCR) Not detected (Not Detecte) Coronavirus NL63 (PCR) Not detected (Not Detect) Human Metapneumovir PCR Not detected (Not Detect) Influenza Type A (PCR) Not detected (Not Detect) Influenza Type B (PCR) Not detected (Not Detect) M. pneumoniae (PCR) Not detected (Not Detect) Parainfluenza 1 (PCR) Not detected (Not Detect) Parainfluenza 2 (PCR) Not detected (Not Detect) Parainfluenza 3 (PCR) Not detected (Not Detect) Parainfluenza 4 (PCR) Not detected (Not Detect) RSV (PCR) Not detected (Not Detect) Entero/Rhino (PCR) Detected H (Not Detect) MDM Narrative Medical decision making narrative: 55-year-old female with 2 weeks duration upper respiratory infection symptoms, increasing facial pain and congestion, concern clinically for sinusitis. Patient awaiting lumpectomy breast surgery tomorrow on Monday. There is no means to reach her surgical team or anesthesia providers at this hour on Monday, regarding continuation or rescheduling offer elective breast lumpectomy surgery tomorrow Monday. Chest x-ray without obvious lobar infiltrate, perihilar bronchitis. See teleradiology report. COVID/flu negative. Rhinovirus positive. She is interested in trial of antibiotics for clinical sinusitis given long duration of symptoms and increasing facial pain. First dose oral Augmentin given, prescription sent to her requested pharmacy for further course. Advised to contact her anesthesia/surgery provider tomorrow or show up for her scheduled morning procedure, to let them know about diagnosis and antibiotics, to see if this needs to be rescheduled, or if they will proceed. Return precautions discussed. Discharge Plan Departure Patient Disposition: Home Clinical Impression: Sinusitis, Rhinovirus infection Activity Restrictions/Additional Instructions: Upper respiratory illness symptoms now for 15 days, with initial cough, now increasing sinus congestion sinus pressure, clinical concern for possible sinusitis. We will start antibiotic Augmentin, 1st dose now, further prescription sent to your requested pharmacy. You also mentioned that you were having lumpectomy breast surgery tomorrow, today Monday does not really possible to talk to your surgery/anesthesia team, you might show up to that appointment as scheduled, but let them know that you just started an antibiotic for sinus infection, in case they feel they would need to reschedule the surgery. Take the antibiotics as prescribed. Take Tylenol and or Motrin as needed for any discomfort. Drink plenty of fluids. Recheck symptoms next week with your regular provider. Return earlier to this/nearest emergency department for any change worsening symptoms or any concerns prior. Chest x-ray showed bronchitis like changes, no pneumonia lobar infiltrates. Respiratory panel was sent, positive for rhino virus, negative for COVID and influenza and all other pathogens tested. There is no specific treatment for rhino virus, it is possible that you had another viral illness starting 2 weeks ago, and more recently had rhino virus. It is possible you are sinus infection like symptoms are viral related. However given the long duration 15 days of symptoms we will treat clinically for bacterial superinfection acute sinusitis. Antibiotics as above. Prescriptions: New amoxicillin-pot clavulanate 875-125 mg tablet 1 tab PO BID Qty: 20 0RF No Action azathioprine 100 mg tablet 75 mg PO DAILY famotidine 20 mg tablet PO DAILY bupropion HCl 75 mg tablet See Rx Instructions .ROUTE .COMPLEX Qty: 180 3RF Dose Instruction: TAKE 1 TABLET DAILY FOR 2 WEEKS, IF NO NEGATIVE EFFECTS, INCREASE TO 2 TABLETS DAILY THEREAFTER Rx Instructions: TAKE 1 TABLET DAILY FOR 2 WEEKS, IF NO NEGATIVE EFFECTS, INCREASE TO 2 TABLETS DAILY THEREAFTER pantoprazole 40 mg tablet,delayed release (DR/EC) 40 mg PO DAILY Qty: 90 1RF Hold Instructions: Home Medication placed on hold at Doctor's office levothyroxine [Synthroid] 88 mcg tablet 88 mcg PO DAILY Qty: 90 3RF (DME) IBreeze See Rx Instructions .Route .MEDSUPPLY Rx Instructions: CPAP Min: 5 Max: 15 DME: [employer] RAJENDRA: 11/04/21 Referrals: Gogo Pedro MD [Primary Care Provider] - Stand Alone Forms: Patient Portal/API/Survey
--- NOTE | 2025-02-16 07:30 | DI.RAD.S_ITS ---
PROCEDURE: XR CHEST 2V INDICATIONS: cough 2 weeks TECHNIQUE: 2 views of the chest were acquired. COMPARISON: None. FINDINGS: Surgical changes and devices: None. Lungs and pleura: Lungs are clear. Mild peribronchial thickening. No pleural effusions or pneumothorax. Mediastinum: Mediastinal contours are normal. Heart size is normal. Bones and chest wall: No suspicious bony abnormalities. Soft tissues appear unremarkable. IMPRESSION: Mild peribronchial thickening. Otherwise, no acute cardiothoracic process. Findings are concordant with the preliminary report. Dictated by: Kyaode Lopez M.D. on 02/16/2025 at 8:05 Approved by: Kayode Lopez M.D. on 02/16/2025 at 8:06
--- NOTE | 2025-02-16 07:47 | PC.NURSE ---
Pt is due for lumpectomy tomorrow. Procedure was previously scheduled for 2 weeks ago and was cancelled due to pt being sick. 4pack was done last week and was negative. dicussed with pt and doctor best plan of care for her potential surgery tmw. decided with pt to do resp panel and CXR instead of a 2nd 4pack swab which was previously negative. strep was negative last week as well. if resp panel or CXR is positive then pt can discuss with her surgeon plan of care going forward.
[2025-02-16] MEDS: AMOXICILLIN/CLAV 875/125 MG 1 TAB PO (08:04)
[2025-02-16 08:49] LABS: Adenovirus Not Detected (Not Detect); B. parapertussis Not Detected (Not Detecte); Bordetella pertussis Not Detected (Not Detect); Chlamydophila pneumoniae Not Detected (Not Detect); Coronavirus 229E Not Detected (Not Detect); Coronavirus HKU1 Not Detected (Not Detect); Coronavirus NL 63 Not Detected (Not Detect); Coronavirus OC43 Not Detected (Not Detect); Human Metapneumovirus Not Detected (Not Detect); Human Rhinovirus/Enterovirus Detected (Not Detect); Influenza A Not Detected (Not Detect); Influenza B Not Detected (Not Detect); Mycoplasma pneumoniae Not Detected (Not Detect); Parainfluenza Virus 1 Not Detected (Not Detect); Parainfluenza Virus 2 Not Detected (Not Detect); Parainfluenza Virus 3 Not Detected (Not Detect); Parainfluenza Virus 4 Not Detected (Not Detect); Respiratory Syncytial Virus Not Detected (Not Detect); SARS- CoV-2 Not Detected (Not Detecte)
== END 2025-02-16 09:09 | disposition home or self-care (01) ==
PROVIDERS: Emergency Provider Emergency Medicine; PCP Family Medicine
DX: J32.9 Chronic sinusitis, unspecified (principal); B34.8 Other viral infections of unspecified site
CPT/HCPCS: 71046; 87633; 99283

== ENCOUNTER → 2025-02-17 07:33 | Outpatient (CLI) | payer OTHER, SELFPAY ==
--- NOTE | 2025-02-17 07:37 | DI.MG.S_ITS ---
MM needle loc LT: 02/17/2025. CLINICAL: 55-year old female for left procedure that resulted from ultrasound, left on 11/29/2024. Tyrer-Cuzick lifetime risk of 5.7%. No personal or first-degree family history of breast cancer. PRIOR EXAMS: Mammogram(s). Breast Ultrasound exam(s). 12/06/2024, 11/29/2024, 11/14/2024, 10/27/2023, 10/07/2022, 10/05/2021, 09/25/2020. CONSENT Risks including but not limited to bleeding and infection, benefits and alternatives were discussed with the patient. The patient agreed to the procedure and signed informed consent. Time out procedure was used. ROUTINE Left: Patient positioned in the supine or supine-oblique position, prepped and draped in the usual manner using sterile technique. TECHNIQUE Left Breast: Outer at 3:00, Mid-Depth: Procedure: Mammographically-guided needle-wire localization of a mass. Device: Kopans style needle-wire assembly. Needle was left in place. Approach: Lateral. Anesthesia: Local anesthesia obtained using 8 ml 1%-lidocaine. Skin Entry: Direct. Targeting Confirmation: Real-time Observation and Post-Procedure Imaging. Localizer Placement: Reinforced segment of wire placed at inferior margin of target. Distal portion of the wire extends 4 cm beyond the lesion. Conclusion: Mammographically-guided Needle-wire localization with post-procedure CC and ML mammographic views. COMPLICATIONS: No complications were encountered while the patient was in our department. DISPOSITION The patient left our department in good condition with aftercare instructions and urged to contact us should any problem arise. SUMMARY Left Breast: Outer at 3:00, Mid-Depth: Mammographically-guided needle-wire localization of a mass. ELECTRONICALLY SIGNED: Mackenzie Lobato M.D. on 02/20/2025 at 10:04:23 AM PT Interpreting Station ID: [id number]
== END ==
PROVIDERS: PCP Family Medicine; Referring Provider Surgery; Visit Provider Surgery
DX: N60.92 Unspecified benign mammary dysplasia of left breast (principal)
CPT/HCPCS: 19281; C1819; J0690

== ENCOUNTER 2025-02-17 07:35 | Day surgery (SDC) | payer OTHER, SELFPAY ==
[2025-01-27 12:16] VITALS: BMI 37.9
[2025-02-17] VITALS (10 sets, daily range): BP systolic 108–123; BP diastolic 70–86; PULSE 50–76; RESP 14–19; TEMP 36.1–36.6; O2SAT 95–98; BMI 37.9
--- NOTE | 2025-02-17 | PATH_ITS ---
[facility] Accession Number: [id number] No. of containers..01 Tissue . 01 Material submitted: . breast - LEFT BREAST TISSUE . 01 Diagnosis: LEFT BREAST TISSUE, WIRE LOCALIZED LEFT LUMPECTOMY: Benign breast parenchyma with duct ectasia and patchy fibrocystic change consisting of cystic dilatation of terminal ductules, stromal fibrosis, apocine metaplasia, and usual ductal hyperplasia. Ring-shaped biopsy clip in slice 8 (of 10 superior to inferior). Changes consistent with previous instrumentation are present. No residual atypical ductal hyperplasia identified. MRV 02/24/2025 1418 Local . 01 Comment: Parts of this case was also reviewed by Dr. Jayy Scanlon (Julie), who agrees with the interpretation. . 01 Electronically signed: . Quynh Rondon MD, Pathologist NPI- [id number] . 01 Gross description: . Received: In formalin with two patient identifiers and left breast tissue with needle local. Specimen: A previously inked left lumpectomy. Weight: 17 grams. Measurement: 6.1 cm superior to inferior, 2.9 cm medial to lateral, 2.0 cm anterior to posterior. Skin ellipse: Absent. Wire: Penetrating inferiorly and terminating superiorly. Margins: Inked by the surgeon as follows: Anterior green, inferior blue, lateral orange, medial yellow, posterior black, superior red. Inking reinforced at the bench. A large price plastic pointed clip is attached to the specimen adjacent to the wire at the inferolateral margin with no designation per the requisition. Sliced: From superior to inferior into 10 slices. Lesion: No discrete lesions identified. Biopsy site: A ring-shaped biopsy clip is found within slice 8 with associated fibrous tissue in slices 6-9. Margins: The biopsy clip is 0.5 cm from the black margin, 0.6 cm from the orange and blue margins, and greater than 1 cm from all remaining margins. Other: The remaining cut surfaces are yellow to white fibroadipose tissue with fibrous tissue occupying approximately 20% of the cut surface. Fixation: The specimen was removed on 02/17/2025, time not provided. Cold ischemic time cannot be calculated. Total fixation time is approximately 55 hours following additional fixation. The specimen is submitted entirely as follows: A1-A2: Slice 1, red margin perpendicular. A3-A10: Single sequential slices 2-9. A11-A12: Slice 10, blue margin perpendicular. ([id number]) /MRV 02/18/2025 1914 Local . 01 Microscopic: . An immunohistochemistry panel is performed to further evaluate the cells of interest. The control stains show appropriate reactivity. . RESULTS: Blocks A9, A11 CK5/6: Mosaic staining. ER: Variable staining. . The variable ER staining and mosaic staining pattern of CK5/6 in the region of interest supports an interpretation of usual ductal hyperplasia in this biopsy. . . * This test was developed and the performance characteristics were validated by [employer]. It has not been cleared or approved by the U.S. Food and Drug Administration. . 01 Pathologist provided ICD-10: N60.99 . 01 CPT . 189435, N27333, J11905 Specimen Comment: A courtesy copy of this report has been sent to [phone] Performed at: [address] [address], [place], [place] [id number] MD Dylon Fernandez MD Phone: [phone]
--- NOTE | 2025-02-17 08:00 | DI.MG.S_ITS ---
MM surgical specimen LT: 02/17/2025. CLINICAL: 55-year old female for exam. Lumpectomy specimen radiograph. PRIOR EXAMS: 12/06/2024, 11/29/2024, 11/14/2024, 10/27/2023, 10/07/2022, 10/05/2021, 09/25/2020. TECHNIQUE: Left specimen radiograph. FINDINGS The target and wire are visualized in the specimen. Pathology report is pending. IMPRESSION: * A wire and tissue marker are seen in the specimen; please see pathology report. ELECTRONICALLY SIGNED: Kvng Lira M.D. on 02/18/2025 at 09:29:14 AM PT Interpreting Station ID: [id number]
[2025-02-17] MEDS: ACETAMINOPHEN IV 1,000 MG/100 ML VIAL 400 MG IV (10:09)
[2025-02-17] MEDS: LACTATED RINGERS 1,000 ML 42 ML IV (10:10)
[2025-02-17] MEDS: SCOPOLAMINE 1 PATCH TOP (10:11)
--- NOTE | 2025-02-17 10:33 | PM.HP.IH.1 ---
History of Present Illness History of Present Illness Date Patient Seen: 02/17/25 Time Patient Seen: 10:33 Chief complaint: L breast lumpectomy w/wire loc Narrative: Ember is a 55-year-old woman with left breast atypical ductal hyperplasia at the 4 o'clock position. See the prior office note for details. She had her wire localization performed by Radiology this morning. [facility] Medical History Lumbar spondylosis Low back pain Depression Anxiety Drug-induced hepatitis (~09/2019) Sliding hiatal hernia (~2010) Anemia Kidney disease Hypothyroidism (~1996) Recurrent UTI Autoimmune hepatitis (~2019) Surgical History History of Anesthesia History of hand surgery (~2016) History of partial hysterectomy (~2010) Ulnar nerve damage (~2006) [place] teeth removed (~2006) History of tubal ligation (~1996) Pilonidal cyst (~1990) S/P ureteral reimplantation Social History Smoking Status: Former smoker alcohol intake: current Meds Home Medications and Allergies Home Medications Medication Instructions Recorded Confirmed Type IBreeze 07/07/22 01/06/25 History azathioprine 100 mg tablet 75 mg PO DAILY 03/21/24 02/17/25 History levothyroxine 88 mcg tablet 88 mcg PO DAILY #90 tabs 03/25/24 02/17/25 Rx (Synthroid) famotidine 20 mg tablet 20 mg PO DAILY 02/07/25 02/17/25 History amoxicillin 875 mg-potassium 1 tab PO BID #20 tabs 02/16/25 02/17/25 Rx clavulanate 125 mg tablet Allergies Allergy/AdvReac Type Severity Reaction Status Date / Time diclofenac Allergy Verified 02/17/25 07:54 ibuprofen Allergy Verified 02/17/25 07:54 NSAIDS (Non-Steroidal AdvReac Unknown Verified 02/17/25 07:54 Anti-Inflamma Exam Vital Signs (past 8 hours): - 02/17/25 08:00 02/17/25 10:17 Temperature 97.8 F 97.8 F Pulse Rate 65 65 Respiratory Rate 16 16 Blood Pressure 123/75 123/75 Pulse Oximetry 97 97 Oxygen Delivery Method Room Air Room Air Oxygen Delivery Method Room Air Narrative Exam Narrative: Left breast localizing wire in place Const General: healthy appearing Assessment & Plan Assessment and plan (1) Atypical ductal hyperplasia of left breast: Status: Acute Plan Proceed with left breast wire localization as planned. Time-Based Coding :: [TOTAL MINUTES] spent with patient and on the chart (including review of chart, obtaining history, exam, reviewing outside data, placing orders, documenting exam and treatment plan, and counseling patient) on [DATE]. PROFEE Telephone [employer] Box Collector Document charge(s): No
[2025-02-17] MEDS: CEFAZOLIN 2 GM/100 ML PREMIX 100 ML IV (11:10)
--- NOTE | 2025-02-17 11:16 | SUR.OPER ---
Supine on padded OR bed, head on pillow, arms secured on padded arm boards at <90 degrees abduction, legs uncrossed, safety belt at thigh, tape over blanket over lower legs.
[2025-02-17] MEDS: BUPIVACAINE 0.5% W/ EPI (PF) 30 ML VIAL INJ (11:17)
--- NOTE | 2025-02-17 11:59 | PM.OP.1 ---
Operative Date/Time/Diagnoses Date of procedure: 02/17/25 Time of procedure: 11:59 Pre-op diagnosis: Left breast atypical ductal hyperplasia Post-op diagnosis: same Procedure & Clinicians Procedure: left breast wire localization partial mastectomy Same procedure as scheduled: Yes Surgeon: Brown Rhodes Anesthesia Type: General Operative Notes Procedure in detail: The patient had a wire localization performed at Radiology prior to arrival in the perioperative area. The patient was brought to the operating room, placed on the table in the supine position, general anesthesia was induced. Arms were abducted on arm boards. The left breast was prepped and draped in the usual fashion. A time-out was performed. The wire was inserted into the lateral breast from an inferior-lateral direction. We made a 5 cm radial incision just superior-lateral to the wire. We created flaps superior and inferior to the incision and then dissected down along the wire keeping the wire within the center portion of specimen. The specimen was excised with the wire intact. The specimen was sent to Radiology for specimen mammogram. We then irrigated the wound cavity with sterile saline. Local anesthetic was injected into the dermis and subcutaneous adipose tissue. A few bleeders were cauterized. Once the wound cavity was hemostatic we closed the incision in layers using multiple interrupted 3-0 Vicryl dermal sutures followed by a running 4-0 Monocryl subcuticular closure. Steri-Strips were applied followed by dry gauze and a breast binder. EBL: 10 mL Specimen: left breast tissue Post-operative Condition: stable Disposition: PACU
== END 2025-02-17 13:20 | disposition home or self-care (01) ==
PROVIDERS: PCP Family Medicine; Referring Provider Surgery; Visit Provider Surgery
PROC: (CPT 19125; principal; 2025-02-17 10:45)
DX: N60.92 Unspecified benign mammary dysplasia of left breast (principal)
CPT/HCPCS: 19125; 19281; 76098; C1819; J0131; J0690; J1100; J2250; J2405; J2704; J3010

== ENCOUNTER 2025-02-21 16:43 | Emergency (ER) | payer OTHER, SELFPAY ==
[2025-02-21] VITALS (8 sets, daily range): BP systolic 104–153; BP diastolic 65–89; PULSE 64–73; RESP 18; TEMP 36.7; O2SAT 96–100; BMI 36.3
[2025-02-21 17:17] LABS: Add Manual Diff / Slide Review NO; Basophils Absolute Auto 100 /uL (0-100); Basophils Percent Auto 0.8 % (0-2); Eosinophils Absolute Auto 500 /uL (0-450); Eosinophils Percent Auto 6.3 % (2-4); Hematocrit 38.9 % (36-46); Lymphocytes Absolute Auto 1400 /uL (1100-4500); Mean Corpuscular HGB Conc 33.4 % (30-36); Mean Corpuscular Hemoglobin 30.3 PG (26-34); Mean Corpuscular Volume 90.8 fL (80-100); Monocytes Absolute Auto 500 /uL (0-900); Monocytes Percent Auto 6.2 % (3-14); Neutrophils Absolute Auto 5600 /uL (1500-7000); Neutrophils Percent Auto 69.7 % (50-75); Platelet Count 280 X10^3/uL (150-400); Red Blood Cell Count 4.28 X10^6/uL (4.0-5.2); Red Cell Distribution Width 13.8 % (11.6-14.8)
[2025-02-21 17:21] LABS: BUN Creatinine Ratio 16.9 (6-22); Blood Urea Nitrogen 21 mg/dL (7-17); Calcium 9.5 mg/dL (8.4-10.2); Carbon Dioxide 25 mmol/L (22-32); Chloride 102 mmol/L (98-107); Estimated Glomerular Filt Rate 52 mL/min (>60); Glucose 99 mg/dL (70-100); HEMOLYSIS < 15 (0-50); Potassium 4.2 mmol/L (3.4-5.1); Sodium 137 mmol/L (137-145)
--- NOTE | 2025-02-21 18:21 | ED_ITS ---
HPI - Skin/Abscess/Foreign Bdy General Chief complaint: Skin/Abscess/Foreign Body Stated complaint: s/p lumpectomy sx site infect? Time Seen by Provider: 02/21/25 18:01 Source: patient Mode of arrival: Ambulatory Limitations: no limitations History of Present Illness HPI narrative: 55-year-old woman underwent left lumpectomy 5 days ago, history of autoimmune hepatitis and currently on azathioprine with concerns for immune deficiency, hypothyroid comes in complaining that today she is just generally feeling a bit worse, body aches or starting and she is concerned that the slight amount of redness around the incision on the outer aspect of her left breast seems to be more erythematous. She was instructed by her surgeon to come in for further evaluation. She has not describing significant fevers, there was no obvious drainage, pain has been decreasing and she has no longer needing narcotics. No nausea vomiting or diarrhea Related Data Home Medications Medication Instructions Recorded Confirmed IBreeze 07/07/22 01/06/25 azathioprine 100 mg tablet 75 mg PO DAILY 03/21/24 02/17/25 famotidine 20 mg tablet 20 mg PO DAILY 02/07/25 02/17/25 Previous Rx's Medication Instructions Recorded levothyroxine 88 mcg tablet 88 mcg PO DAILY #90 tabs 03/25/24 (Synthroid) amoxicillin 875 mg-potassium 1 tab PO BID #20 tabs 02/16/25 clavulanate 125 mg tablet hydrocodone 5 mg-acetaminophen 325 1 tab PO Q8H PRN pain #14 tabs 02/17/25 mg tablet levofloxacin 750 mg tablet 750 mg PO DAILY #6 tabs 02/21/25 Allergies Allergy/AdvReac Type Severity Reaction Status Date / Time diclofenac Allergy Verified 02/17/25 07:54 ibuprofen Allergy Verified 02/17/25 07:54 NSAIDS (Non-Steroidal AdvReac Unknown Verified 02/17/25 07:54 Anti-Inflamma Review of Systems Review of Systems Narrative: Pertinent positive and negative findings as per HPI Patient History Medical History Lumbar spondylosis Low back pain Depression Anxiety Drug-induced hepatitis (~09/2019) Sliding hiatal hernia (~2010) Anemia Kidney disease Hypothyroidism (~1996) Recurrent UTI Autoimmune hepatitis (~2019) Surgical History History of Anesthesia History of hand surgery (~2016) History of partial hysterectomy (~2010) Ulnar nerve damage (~2006) Muir teeth removed (~2006) History of tubal ligation (~1996) Pilonidal cyst (~1990) S/P ureteral reimplantation Social History Smoking Status: Former smoker alcohol intake: current Smoking Status: Former smoker alcohol intake frequency: holidays/special occasions only Exam Initial Vital Signs Initial Vital Signs: Vital Signs Temperature 98.1 F 02/21/25 16:49 Pulse Rate 69 02/21/25 16:49 Respiratory Rate 18 02/21/25 16:49 Blood Pressure 153/89 H 02/21/25 16:49 Pulse Oximetry 98 02/21/25 16:49 Oxygen Delivery Method Room Air 02/21/25 16:49 General: Alert appropriate in no acute distress Respiratory: Able to speak in full sentences, no obvious respiratory distress, no wheezing, no rhonchi Chest: Surgical site itself appears to be healing nicely with no drainage, no underlying abscess. There is approximately 5-6 cm of surrounding cellulitis Cardiac: Regular rate and rhythm, no murmurs Extremities: Well-perfused with no obvious trauma Neurologic: Grossly intact no obvious asymmetries or abnormalities Psych: appropriate insight and affect, cooperative Course Orders Ordered: ED Orders 02/21/25 17:03 BMP [Basic Metabolic Panel] Stat Complete Blood Count AUTO DIFF Stat Vital Signs Vital signs: Vital Signs - 8 hr 02/21/25 16:49 02/21/25 17:09 02/21/25 17:09 Temperature 98.1 F Pulse Rate 69 67 Respiratory Rate 18 Blood Pressure 153/89 H 120/80 Pulse Oximetry 98 100 Oxygen Delivery Method Room Air 02/21/25 17:30 02/21/25 17:30 02/21/25 18:00 Temperature Pulse Rate 71 66 Respiratory Rate Blood Pressure 115/68 Pulse Oximetry 97 96 Oxygen Delivery Method 02/21/25 18:00 02/21/25 18:30 02/21/25 18:30 Temperature Pulse Rate 64 Respiratory Rate Blood Pressure 104/65 114/77 Pulse Oximetry 97 Oxygen Delivery Method Room Air MDM - Skin/Abscess/Foreign Bdy Lab Data 02/21/25 17:03 02/21/25 17:03 Labs: Lab Results 02/21/25 Range/Units 17:03 WBC 8.0 (4.5-11.0) X10^3/uL RBC 4.28 (4.0-5.2) X10^6/uL Hgb 13.0 (12.0-16.0) g/dL Hct 38.9 (36-46) % MCV 90.8 (80-100) fL MCH 30.3 (26-34) PG MCHC 33.4 (30-36) % RDW 13.8 (11.6-14.8) % Plt Count 280 (150-400) X10^3/uL Neut % (Auto) 69.7 (50-75) % Lymph % (Auto) 17.0 L (25-40) % [place] % (Auto) 6.2 (3-14) % Eos % (Auto) 6.3 H (2-4) % Baso % (Auto) 0.8 (0-2) % Neut # (Auto) 5600 (3255-5998) /uL Lymph # (Auto) 1400 (7950-0345) /uL [place] # (Auto) 500 (0-900) /uL Eos # (Auto) 500 H (0-450) /uL Baso # (Auto) 100 (0-100) /uL Sodium 137 (137-145) mmol/L Potassium 4.2 (3.4-5.1) mmol/L Chloride 102 (98-107) mmol/L Carbon Dioxide 25 (22-32) mmol/L BUN 21 H (7-17) mg/dL Creatinine 1.24 H (0.52-1.04) mg/dL Estimated GFR 52 L (>60) mL/min BUN/Creatinine Ratio 16.9 (6-22) Glucose 99 (70-100) mg/dL Calcium 9.5 (8.4-10.2) mg/dL [facility] Narrative Medical decision making narrative: 55-year-old woman 5 days postop left breast lumpectomy with increasing redness and general malaise today. Lab work does not suggest significant bacterial infection, vital signs and clinical exam do not suggest sepsis. On physical exam there was no underlying abscess in the surgical site itself appears to be healing nicely with a slight amount of erythema surrounding the area. She is currently on day 5 of 10 of Augmentin for an infection diagnosed pre-surgery. Continued infection in the setting of Augmentin makes me concern for g negatives including E coli, Klebsiella and Pseudomonas. Because this is a postoperative infection I have suggested that she add 7 days of Levaquin and complete the course of Augmentin. We talked about probiotics, reasons to return to the emergency department signs and symptoms of a developing abscess or sepsis. No current indication for further workup imaging or hospitalization and she is safe for discharge. Discharge Plan Departure Patient Disposition: Home Clinical Impression: Cellulitis of breast Instructions: DI for Cellulitis -- Adult Activity Restrictions/Additional Instructions: Thank you for coming in today Based on your blood work in your physical exam, there is no evidence of sepsis or bacteria overwhelming your body. I am concerned that the cellulitis surrounding the small surgical site does not seem to be improving and may actually be expanding when you are already on amoxicillin/clavulanate. I am going to add levofloxacin, another antibiotic that covers some of the bacteria that the amoxicillin clavulanate does not cover. Please complete 7 days, 1st dose was given in the ER. Please do complete the full course of amoxicillin clavulanate that you have already started This antibiotic was electronically transmitted to [facility] in [employer] If you notice that there is increasing drainage, anything that feels like fluid or abscess developing in your breast or new symptoms you do need to return to the emergency department You would asked about Clostridium difficile. Any antibiotics put you at risk for Clostridium difficile. Taking additional probiotics in the form of foods including any fermented foods such as kombucha, kimchi, yogurt, Chem cheek, sauerkraut can all be helpful. There are available probiotics in liquid form and capsule form that can be found in grocery stores, pharmacies and health food stores if you want to add that as well. Prescriptions: New levofloxacin 750 mg tablet 750 mg PO DAILY Qty: 6 0RF No Action azathioprine 100 mg tablet 75 mg PO DAILY famotidine 20 mg tablet 20 mg PO DAILY levothyroxine [Synthroid] 88 mcg tablet 88 mcg PO DAILY Qty: 90 3RF hydrocodone-acetaminophen 5-325 mg tablet 1 tab PO Q8H PRN (Reason: pain) Qty: 14 0RF amoxicillin-pot clavulanate 875-125 mg tablet 1 tab PO BID Qty: 20 0RF (DME) IBreeze See Rx Instructions .Route .MEDSUPPLY Rx Instructions: CPAP Min: 5 Max: 15 DME: [employer] RAJENDRA: 11/04/21 Referrals: Gogo Pedro MD [Primary Care Provider] - Stand Alone Forms: Patient Portal/API/Survey
[2025-02-21] MEDS: levoFLOXacin 250 MG TABLET 750 MG PO (19:47)
== END 2025-02-21 19:53 | disposition home or self-care (01) ==
PROVIDERS: Family Medicine; Emergency Provider Emergency Medicine; PCP Family Medicine
DX: N61.0 Mastitis without abscess (principal)
CPT/HCPCS: 36415; 80048; 85025; 99283

== ENCOUNTER → 2025-03-26 07:13 | Outpatient (CLI) | payer OTHER, SELFPAY ==
[2025-03-26 08:30] LABS: Hemoglobin A1C% w Est Avg Glu 5.2 % (4.0-6.0)
[2025-03-26 08:40] LABS: Alanine Aminotransferase 29 IU/L (<35); Albumin 4.1 g/dL (3.5-5.0); Albumin Globulin Ratio 1.7 (1.0-2.8); Alkaline Phosphatase 56 U/L (38-126); Aspartate Aminotransferase 27 IU/L (14-36); BUN Creatinine Ratio 14.3 (6-22); Bilirubin Total 1.1 mg/dL (0.2-1.3); Blood Urea Nitrogen 14 mg/dL (7-17); Calcium 9.3 mg/dL (8.4-10.2); Carbon Dioxide 26 mmol/L (22-32); Chloride 101 mmol/L (98-107); Cholesterol 237 mg/dL (140-199); Estimated Glomerular Filt Rate > 60 mL/min (>60); Globulin 2.4 g/dL (1.7-4.1); Glucose 100 mg/dL (70-99); HDL Cholesterol 54 mg/dL (40-60); HEMOLYSIS < 15 (0-50); LDL Cholesterol Calculated 161 mg/dL (<100); Potassium 4.3 mmol/L (3.4-5.1); Sodium 135 mmol/L (137-145); Total Protein 6.5 g/dL (6.3-8.2); Triglycerides 111 mg/dL (35-150)
[2025-03-26 09:16] LABS: Thyroid Stimulating Hormone 1.82 uIU/mL (0.47-4.68)
== END ==
PROVIDERS: PCP Family Medicine; Referring Provider Family Medicine; Visit Provider Family Medicine
DX: E03.9 Hypothyroidism, unspecified (principal); E66.9 Obesity, unspecified
CPT/HCPCS: 36415; 80053; 80061; 83036; 84443

== ENCOUNTER → 2025-04-28 12:07 | Outpatient (CLI) | payer OTHER, SELFPAY ==
[2025-04-28 13:55] LABS: Add Manual Diff / Slide Review NO; Basophils Absolute Auto 0 /uL (0-100); Basophils Percent Auto 0.9 % (0-2); Eosinophils Absolute Auto 200 /uL (0-450); Eosinophils Percent Auto 3.5 % (2-4); Hematocrit 38.6 % (36-46); Hemoglobin 13.1 g/dL (12.0-16.0); Lymphocytes Absolute Auto 1300 /uL (1100-4500); Lymphocytes Percent Auto 23.8 % (25-40); Mean Corpuscular HGB Conc 33.8 % (30-36); Mean Corpuscular Hemoglobin 30.4 PG (26-34); Mean Corpuscular Volume 89.9 fL (80-100); Monocytes Absolute Auto 400 /uL (0-900); Monocytes Percent Auto 8.2 % (3-14); Neutrophils Absolute Auto 3300 /uL (1500-7000); Neutrophils Percent Auto 63.6 % (50-75); Platelet Count 255 X10^3/uL (150-400); Red Blood Cell Count 4.29 X10^6/uL (4.0-5.2); Red Cell Distribution Width 13.7 % (11.6-14.8); White Blood Cell Count 5.3 X10^3/uL (4.5-11.0)
[2025-04-28 14:12] LABS: Alanine Aminotransferase 24 IU/L (<35); Albumin 4.7 g/dL (3.5-5.0); Albumin Globulin Ratio 1.9 (1.0-2.8); Alkaline Phosphatase 52 U/L (38-126); Aspartate Aminotransferase 27 IU/L (14-36); Bilirubin Total 1.1 mg/dL (0.2-1.3); Bilirubin Unconjugated 0.7 mg/dL (0.0-1.1); Globulin 2.5 g/dL (1.7-4.1); HEMOLYSIS < 15 (0-50); Total Protein 7.2 g/dL (6.3-8.2)
== END ==
PROVIDERS: PCP Family Medicine; Referring Provider Internal Medicine Gastroenterology; Visit Provider Internal Medicine Gastroenterology
DX: K75.4 Autoimmune hepatitis (principal)
CPT/HCPCS: 36415; 80076; 85025

== ENCOUNTER → 2025-11-03 08:11 | Outpatient (CLI) | payer OTHER, SELFPAY ==
[2025-11-03 08:57] LABS: Add Manual Diff / Slide Review NO; Hematocrit 36.7 % (36-46); Hemoglobin 12.6 g/dL (12.0-16.0); Lymphocytes Absolute Auto 1200 /uL (1100-4500); Mean Corpuscular HGB Conc 34.2 % (30-36); Mean Corpuscular Hemoglobin 30.8 PG (26-34); Mean Corpuscular Volume 90.1 fL (80-100); Platelet Count 254 X10^3/uL (150-400)
[2025-11-03 09:21] LABS: Alanine Aminotransferase 19 IU/L (<35); Albumin 4.0 g/dL (3.5-5.0); Albumin Globulin Ratio 1.6 (1.0-2.8); Alkaline Phosphatase 52 U/L (38-126); Globulin 2.5 g/dL (1.7-4.1); HEMOLYSIS < 15 (0-50); Total Protein 6.5 g/dL (6.3-8.2)
== END ==
PROVIDERS: PCP Family Medicine; Referring Provider Internal Medicine Gastroenterology; Visit Provider Internal Medicine Gastroenterology
DX: D84.9 Immunodeficiency, unspecified (principal); K75.4 Autoimmune hepatitis
CPT/HCPCS: 36415; 80076; 85025

== ENCOUNTER → 2025-11-14 07:20 | Outpatient (CLI) | payer OTHER, SELFPAY ==
[2025-11-14 08:03] LABS: Influenza A - CEPHEID Flu A NEGATIVE (NEGATIVE); Influenza B - CEPHEID Flu B NEGATIVE (NEGATIVE)
[2025-11-14 08:31] LABS: COVID-19 CEPHEID 4-PLEX PCR Negative (Negative)
== END ==
PROVIDERS: PCP Family Medicine; Visit Provider Chiropractor
DX: R05.1 Acute cough (principal)
CPT/HCPCS: 87637

== ENCOUNTER → 2025-11-14 07:26 | Outpatient (CLI) | payer OTHER, SELFPAY ==
--- NOTE | 2025-11-14 07:27 | DI.RAD.S_ITS ---
PROCEDURE: XR CHEST 2V INDICATIONS: r/o CAP TECHNIQUE: 2 views of the chest were acquired. COMPARISON: [facility], , XR CHEST 2V, 02/16/2025, 7:29. FINDINGS: Surgical changes and devices: None. Lungs and pleura: Lungs are clear. No pleural effusions or pneumothorax. Mediastinum: Mediastinal contours are normal. Heart size is normal. Bones and chest wall: No suspicious bony abnormalities. Soft tissues appear unremarkable. IMPRESSION: No acute cardiopulmonary pathology. Dictated by: Cal Hart M.D. on 11/14/2025 at 8:28 Approved by: Cal Hart M.D. on 11/14/2025 at 8:29
== END ==
PROVIDERS: PCP Family Medicine; Referring Provider Chiropractor; Visit Provider Chiropractor
DX: R05.1 Acute cough (principal)
CPT/HCPCS: 71046; 87637